=== PATIENT | male | born 1940 | race Caucasian/White ===

== ENCOUNTER 2019-04-06 16:28 | Observation (INO) ==
--- NOTE | 2019-04-06 16:59 | Emergency Department Note ---
Disposition Clinical Impression: Weakness, Cough Fever Qualifiers: Fever type: unspecified Qualified Code(s): R50.9 - Fever, unspecified Disposition: Still a Patient Referrals: Jan Aleman MD [Primary Care Provider] - Forms: ED Satisfaction Letter Time of Disposition: 19:19 General Adult HPI - General Chief complaint: ED Shortness of Breath/Dyspnea Stated complaint: congestion Time Seen by Provider: 04/06/19 16:30 Source: EMS Mode of arrival: EMS Limitations: altered mental status Nursing Notes Reviewed: Yes Vital Signs Reviewed: Yes - History of Present Illness HPI Narrative: 78M with PMHx of DM and Parkinson's dx presents to emergency department via EMS with a chief complaint of weakness. Pts gf called EMS last night because the patient slid out of his chair and was unable to get up. Pt refused transport at that time to be evaluated by a physician. Pt was too weak to stand today so EMS was called again today. The patient urinated on himself which is unusual for him. He currently has no complaints at this time. Pain Scale: 0 - Related Data Home Medications Medication Instructions Recorded Confirmed Amaryl 04/16/15 04/16/15 Amitriptyline 04/16/15 04/16/15 Aspirin 04/16/15 04/16/15 Atorvastatin 04/16/15 04/16/15 Glimepiride 04/16/15 04/16/15 Isosorbide Mononitrate 04/16/15 04/16/15 Lisinopril 04/16/15 04/16/15 Loratadine 04/16/15 04/16/15 Plavix 04/16/15 04/16/15 Proscar 04/16/15 04/16/15 Ranitidine 04/16/15 04/16/15 Xarelto 04/16/15 04/16/15 Zoloft 04/16/15 04/16/15 Previous Rx's Medication Instructions Recorded Acetaminophen [Tylenol] 500 mg PO Q6HR PRN #20 tablet 04/16/15 HydrOXYzine Pamoate [Vistaril] 50 mg PO HS PRN #7 capsule 11/30/17 Ondansetron ODT [Zofran ODT] 4 mg SL Q6HR PRN #12 tab.rapdis 11/30/17 Allergies Allergy/AdvReac Type Severity Reaction Status Date / Time oxycodone [From Percocet] Allergy Fatigued Verified 04/16/15 14:00 acetaminophen [From Vicodin] AdvReac Abdominal Verified 04/16/15 14:00 Pain hydrocodone [From Vicodin] AdvReac Abdominal Verified 04/16/15 14:00 Pain Oxycjph-Gas-Ipi Reductase AdvReac Muscle Pain Verified 10/10/15 12:39 Inhibitor [Statins] All systems ED: reviewed and negative except as stated. Review of Systems: As Per HPI Constitutional: Reports: weakness. Denies: fever, chills Cardiovascular: Denies: chest pain, palpitations, dyspnea on exertion Respiratory: Denies: cough, dyspnea, wheezes Gastrointestinal: Denies: abdominal pain, nausea, vomiting Genitourinary: Denies: dysuria Musculoskeletal: Denies: back pain Neurological: Denies: headache Endocrine: Reports: fatigue Past Medical History - Past Medical History Attestation: Yes The following information was validated with the patient. Source: patient Medical history: Reports: atrial fibrillation, DVT, diabetes Psychiatric history: Reports: no psych history - Social History Smoking Status: Never smoker Smokeless Tobacco Status: No Alcohol use: Reports: none Drug use: Reports: none Physical Exam - General Limitations: no limitations General appearance: alert, in no apparent distress - Head Head exam: atraumatic, normocephalic - Eye Eye exam: Present: normal appearance, PERRL, EOMI - Chest Chest inspection: Present: normal inspection. Absent: tenderness, rash - Respiratory Respiratory exam: Present: normal lung sounds bilaterally. Absent: wheezes - Cardiovascular Cardiovascular exam: Present: regular rate, normal rhythm - Abdominal Exam Abdominal exam: Present: soft, Non-Tender. Absent: distention, guarding, rebound, rigidity - Extremities Exam Extremities exam: Present: normal inspection. Absent: tenderness, pedal edema (1+ pedal edema bilaterally) - Neurological Exam Neurological exam: Present: alert. Absent: oriented X3 - Psychiatric Psychiatric exam: Present: normal affect, normal mood - Skin Skin exam: Present: warm, dry, intact Course Vital Signs Temperature 102.5 F H 04/06/19 16:31 Pulse Rate 86 04/06/19 16:31 Respiratory Rate 12 04/06/19 16:31 Blood Pressure 168/88 04/06/19 16:31 O2 Sat by Pulse Oximetry 95 04/06/19 16:31 Temperature 102.5 F H 04/06/19 16:31 Pulse Rate 86 04/06/19 16:31 Respiratory Rate 12 04/06/19 16:31 Blood Pressure 168/88 04/06/19 16:31 O2 Sat by Pulse Oximetry 95 04/06/19 16:31 Medical Decision Making - [facility] Narrative Medical decision making narrative: Pt presents with acute weakness and is febrile. We will pursue a septic workup and plan on admission for the patient. 191 - pts labs are unremarkable with a normal lactic, troponin, and WBC. He does not meet sepsis criteria but does have a cough. Awaiting CXR and urinalysis and we will treat his cough and usama with Duonebs. Pt will be signed out to the night team of Dr. Miller and Dr. Norwood for follow up on urine and CXR and admission for weakness. - Medical Records Medical records reviewed: Yes I reviewed the patient's medical records. - Lab Data Lab results reviewed: Yes I reviewed the patient's lab results. Result diagrams: 04/06/19 17:49 04/06/19 17:49 Lab Results 04/06/19 04/06/19 04/06/19 Range/Units 17:49 17:49 17:49 WBC 9.4 (4.3-11.1) K/mcL RBC 4.38 (4.19-5.50) M/mcL Hgb 13.3 (12.9-16.9) g/dL Hct 41.2 (37.5-50.1) % MCV 94.1 (83.0-100.0) fL MCH 30.4 (28.0-33.3) pg MCHC 32.3 (31.6-35.5) g/dL RDW 13.6 (11.5-14.5) % Plt Count 143 (140-400) K/mcL MPV 10.8 (9.4-12.4) fL Immature Gran % 0.4 (0-4) % Seg Neutrophils % 88.2 % Lymphocytes % 4.6 % Monocytes % 6.6 % Eosinophils % 0.0 % Basophils % 0.2 % Neutrophils # 8.3 (1.6-8.9) K/mcL Lymphocytes # 0.4 L (0.6-4.6) K/mcL Monocytes # 0.6 (0.0-1.3) K/mcL Eosinophils # 0.0 (0.0-0.6) K/mcL Basophils # 0.0 (0.0-0.2) K/mcL PT 15.9 H (9.4-12.1) Seconds INR 1.4 APTT 40.3 H (26.0-36.0) Seconds Sodium 137 (136-145) mEq/L Potassium 4.6 (3.5-5.1) mEq/L Chloride 101 (98-107) mEq/L Carbon Dioxide 25 (23-29) mEq/L BUN 22 (8-23) mg/dL Creatinine 1.13 (0.70-1.30) mg/dL Est GFR ( Amer) > 60 (> 60) Est GFR (Non-Af Amer) > 60 (> 60) BUN/Creatinine Ratio 19 (6-26) Glucose 268 H (70-105) mg/dL Calculated Osmolality 297 (280-300) Lactic Acid (0.5-2.2) mmol/L Calcium 9.4 (8.6-10.3) mg/dL Phosphorus 2.1 L (2.7-4.5) mg/dL Magnesium 1.8 (1.6-2.6) mg/dL Total Bilirubin 0.6 (0.3-1.0) mg/dL Direct Bilirubin 0.1 (0.0-0.2) mg/dL Indirect Bilirubin 0.5 (0.0-1.2) mg/dL AST 15 (13-39) Units/L ALT 18 (7-52) Units/L Alkaline Phosphatase 77 (34-104) Units/L Troponin I < 0.03 (< 0.04) ng/mL Serum Total Protein 7.2 (6.4-8.9) g/dL Albumin 4.4 (3.5-5.7) g/dL Globulin 2.8 (2.4-3.5) g/dL Albumin/Globulin Ratio 1.6 (1.1-2.2) 04/06/19 Range/Units 17:49 WBC (4.3-11.1) K/mcL RBC (4.19-5.50) M/mcL Hgb (12.9-16.9) g/dL Hct (37.5-50.1) % MCV (83.0-100.0) fL MCH (28.0-33.3) pg MCHC (31.6-35.5) g/dL RDW (11.5-14.5) % Plt Count (140-400) K/mcL MPV (9.4-12.4) fL Immature Gran % (0-4) % Seg Neutrophils % % Lymphocytes % % Monocytes % % Eosinophils % % Basophils % % Neutrophils # (1.6-8.9) K/mcL Lymphocytes # (0.6-4.6) K/mcL Monocytes # (0.0-1.3) K/mcL Eosinophils # (0.0-0.6) K/mcL Basophils # (0.0-0.2) K/mcL PT (9.4-12.1) Seconds INR APTT (26.0-36.0) Seconds Sodium (136-145) mEq/L Potassium (3.5-5.1) mEq/L Chloride (98-107) mEq/L Carbon Dioxide (23-29) mEq/L BUN (8-23) mg/dL Creatinine (0.70-1.30) mg/dL Est GFR ( Amer) (> 60) Est GFR (Non-Af Amer) (> 60) BUN/Creatinine Ratio (6-26) Glucose (70-105) mg/dL Calculated Osmolality (280-300) Lactic Acid 1.6 (0.5-2.2) mmol/L Calcium (8.6-10.3) mg/dL Phosphorus (2.7-4.5) mg/dL Magnesium (1.6-2.6) mg/dL Total Bilirubin (0.3-1.0) mg/dL Direct Bilirubin (0.0-0.2) mg/dL Indirect Bilirubin (0.0-1.2) mg/dL AST (13-39) Units/L ALT (7-52) Units/L Alkaline Phosphatase (34-104) Units/L Troponin I (< 0.04) ng/mL Serum Total Protein (6.4-8.9) g/dL Albumin (3.5-5.7) g/dL Globulin (2.4-3.5) g/dL Albumin/Globulin Ratio (1.1-2.2) - EKG Data EKG #1 EKG attestation: Yes I reviewed and interpreted this EKG. EKG results narrative: EKG obtained at Heart rate 89 bpm, QRS duration 100, QT 43, QTC 491 History of atrial flutter with 3-1 conduction. No signs of acute ST segment elevations or depressions. No other T-wave abnormalities. No significant changes when compared to previous EKG dated 11/18/2014.
[2019-04-06 18:11] LABS: Basophils % 0.2 %; Hematocrit 41.2 % (37.5-50.1); Hemoglobin 13.3 g/dL (12.9-16.9); Immature Granulocytes % 0.4 % (0-4); Lymphocytes # 0.4 K/mcL (0.6-4.6); Lymphocytes % 4.6 %; Mean Corpuscular HGB Conc 32.3 g/dL (31.6-35.5); Mean Corpuscular Hemoglobin 30.4 pg (28.0-33.3); Mean Corpuscular Volume 94.1 fL (83.0-100.0); Mean Platelet Volume 10.8 fL (9.4-12.4); Monocytes # 0.6 K/mcL (0.0-1.3); Monocytes % 6.6 %; Neutrophils # 8.3 K/mcL (1.6-8.9); Platelet Count 143 K/mcL (140-400); Red Blood Count 4.38 M/mcL (4.19-5.50); Red Cell Distribution Width 13.6 % (11.5-14.5); Segmented Neutrophils % 88.2 %; White Blood Count 9.4 K/mcL (4.3-11.1)
[2019-04-06 18:18] LABS: INR 1.4; Prothrombin Time 15.9 Seconds (9.4-12.1)
[2019-04-06 18:21] LABS: Activated Partial Thrombo Time 40.3 Seconds (26.0-36.0)
[2019-04-06 18:28] LABS: Alanine Aminotransferase 18 Units/L (7-52); Albumin 4.4 g/dL (3.5-5.7); Albumin/Globulin Ratio 1.6 (1.1-2.2); Alkaline Phosphatase 77 Units/L (34-104); Aspartate Amino Transferase 15 Units/L (13-39); BUN/Creatinine Ratio 19 (6-26); Bilirubin,Direct 0.1 mg/dL (0.0-0.2); Bilirubin,Indirect 0.5 mg/dL (0.0-1.2); Bilirubin,Total 0.6 mg/dL (0.3-1.0); Blood Urea Nitrogen 22 mg/dL (8-23); Calcium 9.4 mg/dL (8.6-10.3); Carbon Dioxide 25 mEq/L (23-29); Chloride 101 mEq/L (98-107); Globulin 2.8 g/dL (2.4-3.5); Glucose 268 mg/dL (70-105); Magnesium 1.8 mg/dL (1.6-2.6); Osmolality,Calculated 297 (280-300); Phosphorous 2.1 mg/dL (2.7-4.5); Potassium 4.6 mEq/L (3.5-5.1); Sodium 137 mEq/L (136-145); Total Protein 7.2 g/dL (6.4-8.9); Troponin I < 0.03 ng/mL (< 0.04); eGFR For African Americans > 60 (> 60); eGFR For Non-African Americans > 60 (> 60)
[2019-04-06] MEDS ORDERED: Ipratropium/Albuterol Neb 3 ML IH ONE (19:09)
[2019-04-06 19:20] LABS: Bilirubin,Urine Negative (Negative); Blood,Urine Negative (Negative); Clarity,Urine Clear (Clear); Color,Urine Yellow (Yellow); Glucose,Urine (UA) 500 mg/dL (Normal); Ketones,Urine Trace mg/dL (Negative); Leukocyte Esterase,Urine Negative (Negative); Nitrite,Urine Negative (Negative); Protein,Urine Trace mg/dL (Neg-Trace); Specific Gravity,Urine 1.025 (1.010-1.025); Urobilinogen,Urine Normal (Normal)
[2019-04-06] MEDS ORDERED: methylPREDNISolone 125 MG/2 ML VIAL IVP ONE (20:10)
[2019-04-06] MEDS ORDERED: 0.9 % Sodium Chloride 1,000 ML IVC ONE (20:10)
[2019-04-06] MEDS ORDERED: *HR* Metoprolol 5 MG/5 ML VIAL IVP ONE (20:11)
--- NOTE | 2019-04-06 20:48 | Emergency Department Note ---
Disposition Clinical Impression: Weakness, Cough, Tachycardia, Atrial fibrillation and flutter Fever Qualifiers: Fever type: unspecified Qualified Code(s): R50.9 - Fever, unspecified Disposition: Admitted As Inpatient Referrals: Jan Aleman MD [Primary Care Provider] - Forms: ED Satisfaction Letter Time of Disposition: 20:50 General Adult HPI - General Chief complaint: ED Shortness of Breath/Dyspnea Stated complaint: congestion Time Seen by Provider: 04/06/19 16:30 Source: EMS Mode of arrival: EMS Limitations: no limitations Nursing Notes Reviewed: Yes Vital Signs Reviewed: Yes - History of Present Illness Pain Scale: 0 - Related Data Home Medications Medication Instructions Recorded Confirmed Amaryl 04/16/15 04/16/15 Amitriptyline 04/16/15 04/16/15 Aspirin 04/16/15 04/16/15 Atorvastatin 04/16/15 04/16/15 Glimepiride 04/16/15 04/16/15 Isosorbide Mononitrate 04/16/15 04/16/15 Lisinopril 04/16/15 04/16/15 Loratadine 04/16/15 04/16/15 Plavix 04/16/15 04/16/15 Proscar 04/16/15 04/16/15 Ranitidine 04/16/15 04/16/15 Xarelto 04/16/15 04/16/15 Zoloft 04/16/15 04/16/15 Previous Rx's Medication Instructions Recorded Acetaminophen [Tylenol] 500 mg PO Q6HR PRN #20 tablet 04/16/15 HydrOXYzine Pamoate [Vistaril] 50 mg PO HS PRN #7 capsule 11/30/17 Ondansetron ODT [Zofran ODT] 4 mg SL Q6HR PRN #12 tab.rapdis 11/30/17 Allergies Allergy/AdvReac Type Severity Reaction Status Date / Time oxycodone [From Percocet] Allergy Fatigued Verified 04/06/19 19:47 acetaminophen [From Vicodin] AdvReac Abdominal Verified 04/06/19 19:47 Pain hydrocodone [From Vicodin] AdvReac Abdominal Verified 04/06/19 19:47 Pain Iocmeqe-Bbc-Rxa Reductase AdvReac Muscle Pain Verified 04/06/19 19:47 Inhibitor [Statins] Constitutional: Reports: weakness. Denies: fever, chills Cardiovascular: Denies: chest pain, palpitations, dyspnea on exertion Respiratory: Denies: cough, dyspnea, wheezes Gastrointestinal: Denies: abdominal pain, nausea, vomiting Genitourinary: Denies: dysuria Musculoskeletal: Denies: back pain Neurological: Denies: headache Endocrine: Reports: fatigue Past Medical History - Past Medical History Medical history: Reports: atrial fibrillation, DVT, diabetes Psychiatric history: Reports: no psych history - Social History Smoking Status: Never smoker Smokeless Tobacco Status: No Alcohol use: Reports: none Drug use: Reports: none Physical Exam - General Limitations: no limitations General appearance: alert, in no apparent distress Course Vital Signs Temperature 102.5 F H 04/06/19 16:31 Pulse Rate 86 04/06/19 16:31 Respiratory Rate 12 04/06/19 16:31 Blood Pressure 168/88 04/06/19 16:31 O2 Sat by Pulse Oximetry 95 04/06/19 16:31 Temperature 102.5 F H 04/06/19 16:31 Pulse Rate 131 04/06/19 19:30 Respiratory Rate 20 04/06/19 19:30 Blood Pressure 155/78 04/06/19 19:30 O2 Sat by Pulse Oximetry 93 04/06/19 19:50 Oxygen Delivery Oxygen Delivery Room Air Medical Decision Making - [facility] Narrative Medical decision making narrative: I received this patient in signout, as following up on chest x-ray, and the patient would need to be admitted for further management of bronchitis, and generalized weakness. Chest x-ray showed no evidence of acute abnormality, repeat examination of the patient, his heart rate increased from 85 up to 133, appeared to be A. fib/flutter on the monitor, his heart rate then dropped to 106, then back into the 80s then increased again in the 130s, repeat EKG was obtained which demonstrated likely a flutter with a heart rate of 133, cannot rule out isolated sinus tachycardia. He was then given IV fluids, 1 dose of IV metoprolol. I did add a flu screen to his workup for fever and cough which was negative. Patient does have a history of A. fib, is on a factor X inhibitor, do not edmond spect blood clot he does not endorse chest pain, has a cough, with the fever, with diffuse wheezing and coarse breath sounds throughout his lungs consistent with acute bronchitis. I contacted the hospitalist service will admit this patient for further management. I reviewed all his laboratory studies which were all within acceptable limits with no laboratory findings suggestive of sepsis, no evidence of acute myocardial infarction. The hospitalist service requested a CT of the chest without contrast to further define any potential infectious process as well as a viral respiratory panel which I added for them, and they will admit this patient for further management. Secondary to persistent wheezes, I also give the patient IV Solu-Medrol. - Lab Data Result diagrams: 04/06/19 17:49 04/06/19 17:49 Lab Results 04/06/19 04/06/19 04/06/19 Range/Units 17:49 17:49 17:49 WBC 9.4 (4.3-11.1) K/mcL RBC 4.38 (4.19-5.50) M/mcL Hgb 13.3 (12.9-16.9) g/dL Hct 41.2 (37.5-50.1) % MCV 94.1 (83.0-100.0) fL MCH 30.4 (28.0-33.3) pg MCHC 32.3 (31.6-35.5) g/dL RDW 13.6 (11.5-14.5) % Plt Count 143 (140-400) K/mcL MPV 10.8 (9.4-12.4) fL Immature Gran % 0.4 (0-4) % Seg Neutrophils % 88.2 % Lymphocytes % 4.6 % Monocytes % 6.6 % Eosinophils % 0.0 % Basophils % 0.2 % Neutrophils # 8.3 (1.6-8.9) K/mcL Lymphocytes # 0.4 L (0.6-4.6) K/mcL Monocytes # 0.6 (0.0-1.3) K/mcL Eosinophils # 0.0 (0.0-0.6) K/mcL Basophils # 0.0 (0.0-0.2) K/mcL PT 15.9 H (9.4-12.1) Seconds INR 1.4 APTT 40.3 H (26.0-36.0) Seconds Sodium 137 (136-145) mEq/L Potassium 4.6 (3.5-5.1) mEq/L Chloride 101 (98-107) mEq/L Carbon Dioxide 25 (23-29) mEq/L BUN 22 (8-23) mg/dL Creatinine 1.13 (0.70-1.30) mg/dL Est GFR ( Amer) > 60 (> 60) Est GFR (Non-Af Amer) > 60 (> 60) BUN/Creatinine Ratio 19 (6-26) Glucose 268 H (70-105) mg/dL Calculated Osmolality 297 (280-300) Lactic Acid (0.5-2.2) mmol/L Calcium 9.4 (8.6-10.3) mg/dL Phosphorus 2.1 L (2.7-4.5) mg/dL Magnesium 1.8 (1.6-2.6) mg/dL Total Bilirubin 0.6 (0.3-1.0) mg/dL Direct Bilirubin 0.1 (0.0-0.2) mg/dL Indirect Bilirubin 0.5 (0.0-1.2) mg/dL AST 15 (13-39) Units/L ALT 18 (7-52) Units/L Alkaline Phosphatase 77 (34-104) Units/L Troponin I < 0.03 (< 0.04) ng/mL Serum Total Protein 7.2 (6.4-8.9) g/dL Albumin 4.4 (3.5-5.7) g/dL Globulin 2.8 (2.4-3.5) g/dL Albumin/Globulin Ratio 1.6 (1.1-2.2) Urine Color (Yellow) Urine Clarity (Clear) Urine pH (5.0-8.0) pH Units Ur Specific [place] (1.010-1.025) Urine Protein (Neg-Trace) mg/dL Urine Glucose (UA) (Normal) mg/dL Urine Ketones (Negative) mg/dL Urine Blood (Negative) Urine Nitrite (Negative) Urine Bilirubin (Negative) Urine Urobilinogen (Normal) mg/dL Ur Leukocyte Esterase (Negative) Ur Culture Indicated? (NO) 04/06/19 04/06/19 Range/Units 17:49 19:09 WBC (4.3-11.1) K/mcL RBC (4.19-5.50) M/mcL Hgb (12.9-16.9) g/dL Hct (37.5-50.1) % MCV (83.0-100.0) fL MCH (28.0-33.3) pg MCHC (31.6-35.5) g/dL RDW (11.5-14.5) % Plt Count (140-400) K/mcL MPV (9.4-12.4) fL Immature Gran % (0-4) % Seg Neutrophils % % Lymphocytes % % Monocytes % % Eosinophils % % Basophils % % Neutrophils # (1.6-8.9) K/mcL Lymphocytes # (0.6-4.6) K/mcL Monocytes # (0.0-1.3) K/mcL Eosinophils # (0.0-0.6) K/mcL Basophils # (0.0-0.2) K/mcL PT (9.4-12.1) Seconds INR APTT (26.0-36.0) Seconds Sodium (136-145) mEq/L Potassium (3.5-5.1) mEq/L Chloride (98-107) mEq/L Carbon Dioxide (23-29) mEq/L BUN (8-23) mg/dL Creatinine (0.70-1.30) mg/dL Est GFR ( Amer) (> 60) Est GFR (Non-Af Amer) (> 60) BUN/Creatinine Ratio (6-26) Glucose (70-105) mg/dL Calculated Osmolality (280-300) Lactic Acid 1.6 (0.5-2.2) mmol/L Calcium (8.6-10.3) mg/dL Phosphorus (2.7-4.5) mg/dL Magnesium (1.6-2.6) mg/dL Total Bilirubin (0.3-1.0) mg/dL Direct Bilirubin (0.0-0.2) mg/dL Indirect Bilirubin (0.0-1.2) mg/dL AST (13-39) Units/L ALT (7-52) Units/L Alkaline Phosphatase (34-104) Units/L Troponin I (< 0.04) ng/mL Serum Total Protein (6.4-8.9) g/dL Albumin (3.5-5.7) g/dL Globulin (2.4-3.5) g/dL Albumin/Globulin Ratio (1.1-2.2) Urine Color Yellow (Yellow) Urine Clarity Clear (Clear) Urine pH 6.0 (5.0-8.0) pH Units Ur Specific [place] 1.025 (1.010-1.025) Urine Protein Trace (Neg-Trace) mg/dL Urine Glucose (UA) 500 H (Normal) mg/dL Urine Ketones Trace H (Negative) mg/dL Urine Blood Negative (Negative) Urine Nitrite Negative (Negative) Urine Bilirubin Negative (Negative) Urine Urobilinogen Normal (Normal) mg/dL Ur Leukocyte Esterase Negative (Negative) Ur Culture Indicated? NO (NO)
[2019-04-06] MEDS ORDERED: Acetaminophen 325 MG TABLET PO PRN (21:23)
[2019-04-06] MEDS ORDERED: Ipratropium/Albuterol Neb 3 ML IH PRN (21:23)
[2019-04-06] MEDS ORDERED: GuaiFENesin Liq 200 MG/10 ML UDC PO PRN (21:24)
[2019-04-06] MEDS ORDERED: *HR* Dextrose 50 % in Water (Syg) 50 ML SYRINGE IVP PRN (21:37)
[2019-04-06] MEDS ORDERED: Dextrose Gel 15 GM/37.5 ML TUBE PO PRN ×2 (21:37)
[2019-04-06 22:07] LABS: Adenovirus Not Detected (Not Detect); Bordetella Pertussis Not Detected (Not Detect); Chlamydophila pneumoniae Not Detected (Not Detect); Coronavirus 229E Not Detected (Not Detect); Coronavirus HKU1 Not Detected (Not Detect); Coronavirus NL63 Not Detected (Not Detect); Coronavirus OC43 Not Detected (Not Detect); Human Metapneumovirus Not Detected (Not Detect); Human Rhinovirus/Enterovirus DETECTED (Not Detect); Influenza A Subtype 2009 H1 Not Detected (Not Detect); Influenza A Untypeable Not Detected (Not Detect); Influenza B Not Detected (Not Detect); Mycoplasma pneumoniae Not Detected (Not Detect); Parainfluenza Virus 1 Not Detected (Not Detect); Parainfluenza Virus 2 Not Detected (Not Detect); Parainfluenza Virus 3 Not Detected (Not Detect); Parainfluenza Virus 4 Not Detected (Not Detect); Respiratory Syncytial Virus Not Detected (Not Detect)
[2019-04-06] MEDS ORDERED: Indomethacin 25 MG CAPSULE PO ONE (22:33)
[2019-04-06] MEDS: Ringers Solution, Lactated 1,000 ML IVC SCH (23:05)
--- NOTE | 2019-04-06 23:09 | Internal Med History&Physical ---
Date of Encounter: 04/06/19 Time of Encounter: 23:08 Internal Medicine - H&P: HPI Chief complaint: weakness Admitted From: Home Plans for Post Hospital Care: Home History of present illness: Satinder Blanton is a 78 year old man with diabetes, coronary artery disease and atrial fibrillation who was brought to the ER with complaints of generalized. 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 He refused to be transported to the hospital then. He remained too weak to stand today and urinated on himself so EMS was again called. He offered no complaints to the ER staff but was noted febrile to 102.5F and later went into Afib with RVR which responded to 5mg of metoprolol IVP. He was also given a liter of fluids. At the time of my assessment is only complaint was a bothersome dry cough that has been present over a number of days accompanied by sore throat. He denies chest pain, dyspnea, nausea, vomiting, abdominal pain and diarrhea. He does admit to feeling feverish earlier. He is referred for admission. Vitals: Reviewed General: Elderly man who appears asthenic lying in bed in NAD smacking his tongue. Skin: Warm, pale and dry. HEENT: Dry mucous membranes. (+) conjunctivae pallor. Neck: No lymphadenopathy. No JVD. No carotid bruits. No palpable thyroid. Chest: Diminished thoracic expansion. Rales in both lung bases. Heart: Normal S1 & S2; rhythmic. No rubs or murmurs. Abdomen: Non-distended, soft and non-tender to palpation. No peritoneal reaction. Extremities: No clubbing, cyanosis. No calf tenderness. Normal distal pulses. Neurological: Awake, alert and oriented to person, place. No focal deficits. Psych: Affect flat. Assessment/Plan 1. Fever: Will get a CT scan to evaluate the crackles auscultated on the patient to ensure there is no pneumonic consolidation. There is no evidence of UTI or skin/soft tissue infection. The complaints of dry cough and sore throat in the setting of the fever prompts me to think he has a viral syndrome so a respiratory virus panel will be ordered. In the interim, blood cultures will be ordered empirically but there is currently no indication for antimicrobials until proven otherwise. Keep on IVF for hydration as he appears dry. 2. Generalized weakness: Suspect secondary to the febrile/viral syndrome. Will get physical therapy for mobilization. May need assistance at home. He has underlying Parkinson's documented but I do not see what medications he is on for this. 3. Hypophosphatemia: Supplementation ordered. 4. Diabetes: Diet ordered with insulin sliding scale. 5. CAD: Awaiting home medication reconciliation prior to initiating medications. 6. Atrial fibrillation: Currently rate controlled. Monitor on telemetry. Awaiting home medication reconciliation prior to initiating medications. Past Med Surg Social Fam HX - Past Medical History Medical history: atrial fibrillation, DVT, diabetes Additional medical history: parkinson's dosease. diabetes Psychiatric history: no psych history - Past Surgical History Additional surgical history: Stents x 3 - Social History Smoking Status: Never smoker Smokeless Tobacco Status: No Alcohol use: none Drug use: none Internal Medicine - H&P: Meds Acetaminophen [Tylenol] 500 mg PO Q6HR PRN #20 tablet 04/16/15 [Rx] Amaryl 04/16/15 [History] Amitriptyline 04/16/15 [History] Aspirin 04/16/15 [History] Atorvastatin 04/16/15 [History] Glimepiride 04/16/15 [History] Isosorbide Mononitrate 04/16/15 [History] Lisinopril 04/16/15 [History] Loratadine 04/16/15 [History] Plavix 04/16/15 [History] Proscar 04/16/15 [History] Ranitidine 04/16/15 [History] Xarelto 04/16/15 [History] Zoloft 04/16/15 [History] HydrOXYzine Pamoate [Vistaril] 50 mg PO HS PRN #7 capsule 11/30/17 [Rx] Ondansetron ODT [Zofran ODT] 4 mg SL Q6HR PRN #12 tab.rapdis 11/30/17 [Rx] Allergy/AdvReac Type Severity Reaction Status Date / Time oxycodone [From Percocet] Allergy Fatigued Verified 04/06/19 19:47 acetaminophen [From Vicodin] AdvReac Abdominal Verified 04/06/19 19:47 Pain hydrocodone [From Vicodin] AdvReac Abdominal Verified 04/06/19 19:47 Pain Feumqmf-Gvr-Wdd Reductase AdvReac Muscle Pain Verified 04/06/19 19:47 Inhibitor [Statins] All Systems PM: A 10-system review of systems was performed and is negative for pertinent findings except as documented above in the HPI. Family history reviewed and found non-contributory. - Constitutional Vitals: Temp Pulse Resp BP Pulse Ox 98.3 F 83 16 137/77 94 04/06/19 22:42 04/06/19 22:42 04/06/19 22:42 04/06/19 22:42 04/06/19 22:42 Exam: . Internal Med - H&P Results - Labs CBC & Chem 7: 04/06/19 17:49 04/06/19 17:49 Labs: Short CBC 04/06/19 Range/Units 17:49 WBC 9.4 (4.3-11.1) K/mcL Hgb 13.3 (12.9-16.9) g/dL Hct 41.2 (37.5-50.1) % Plt Count 143 (140-400) K/mcL Neutrophils # 8.3 (1.6-8.9) K/mcL BMP 04/06/19 17:49 Sodium 137 Potassium 4.6 Chloride 101 Carbon Dioxide 25 BUN 22 Creatinine 1.13 Glucose 268 H Calcium 9.4 Cardiac Enzymes 04/06/19 Range/Units 17:49 Troponin I < 0.03 (< 0.04) ng/mL Liver Function 04/06/19 Range/Units 17:49 Total Bilirubin 0.6 (0.3-1.0) mg/dL Direct Bilirubin 0.1 (0.0-0.2) mg/dL AST 15 (13-39) Units/L ALT 18 (7-52) Units/L Alkaline Phosphatase 77 (34-104) Units/L Albumin 4.4 (3.5-5.7) g/dL Urine 04/06/19 Range/Units 19:09 Urine Color Yellow (Yellow) Urine Clarity Clear (Clear) Urine pH 6.0 (5.0-8.0) pH Units Ur Specific [place] 1.025 (1.010-1.025) Urine Protein Trace (Neg-Trace) mg/dL Urine Glucose (UA) 500 H (Normal) mg/dL - Impressions ITS Impressions Chest X-Ray 04/06/19 18:44 IMPRESSION: Stable portable study. D/ / Leyda Lay Cha, MD / Leyda Lay Cha, MD Interpreting Provider: Leyda Lay Cha, MD Chest CT 04/06/19 20:41 IMPRESSION: Mild diffuse central bronchial wall thickening, nonspecific finding which can be seen with infectious or inflammatory etiologies to include smoking. Minimal mostly dependent bibasilar airspace disease, likely atelectasis. Pneumonia is considered unlikely. D/ / Leyda Lay Cha, MD / Leyda Lay Cha, MD Interpreting Provider: Leyda Lay Cha, MD - Time Spent With Patient Total time spent is greater than 50% in coordination of care (as documented) at patient's floor/unit and/or counseling patient:
[2019-04-07] MEDS: Ringers Solution, Lactated 1,000 ML IVC SCH (07:51)
[2019-04-07] MEDS: Insulin LISPRO 300 UNITS/3 ML VIAL SQ SCH ×3 (07:52→17:35)
--- NOTE | 2019-04-07 09:38 | Internal Med Progress Note ---
Hospitalist Progress Note - Encounter Date of Encounter: 04/07/19 Time of Encounter: 09:35 - Subjective Interval History: Satinder Blanton is a 78 year old man with diabetes, coronary artery disease and atrial fibrillation who was brought to the ER with complaints of generalized weakness. It is reported that his female order entry administrator called EMS last night because he slid out of his chair and was unable to get up. He refused to be transported to the hospital then. He remained too weak to stand today and urinated on himself so EMS was again called. He offered no complaints to the ER staff but was noted febrile to 102.5F and later went into Afib with RVR which responded to 5mg of metoprolol IVP. He was also given a liter of fluids. At the time of my assessment is only complaint was a bothersome dry cough that has been present over a number of days accompanied by sore throat. He denies chest pain, dyspnea, nausea, vomiting, abdominal pain and diarrhea. He does admit to feeling feverish earlier. He is admitted. Pt seen and examined in the room. He stated that he is able to stand up and walk now. reported absence of fever, chills, or night sweats. reported dry cough without mucus, no chest pain or shortness of breath. - Exam Vitals: Temp Pulse Resp BP Pulse Ox 97.6 F 63 16 93/62 99 04/07/19 06:25 04/07/19 06:25 04/07/19 06:25 04/07/19 06:25 04/07/19 06:25 Exam: PHYSICAL EXAMINATION: GENERAL APPEARANCE: The patient is alert, oriented and in no acute distress. HEENT: Head is normocephalic. The sinuses are nontender. Pupils are equal and reactive. The nares are patent. Oropharynx clear without lesions. NECK: Supple without lymphadenopathy. HEART: Regular rate and rhythm. LUNGS: No crackles or wheezes are heard. ABDOMEN: Soft, nontender, nondistended with good bowel sounds heard. Inguinal area is normal. EXTREMITIES: Without cyanosis, clubbing or edema. NEUROLOGICAL: Gross nonfocal. SKIN: Warm and dry without any rash. - Assessment and Plan (1) Weakness Current Visit: Yes Status: Acute Assessment and Plan: Transient weakness when he was found having afib with rvr. He has returned to his baseline this morning. He has reported hx of Parkinson's disease but currently not receiving treatment for that. Pending PT/OT consult. (2) Cough Current Visit: Yes Status: Acute Assessment and Plan: Respiratory panel is positive for rhinovirus. Reported dry cough without sputum production, also he had 1 episode of fever, but his temperature has been normal since admission. CT of chest revealed mild diffuse central bronchial wall thickening, nonspecific finding which can be seen with infectious or inflammatory etiologies to include smoking. Minimal mostly dependent bibasilar airspace disease, likely atelectasis, pneumonia is considered unlikely. Continue supportive care. (3) Fever Current Visit: Yes Status: Acute Assessment and Plan: Patient had a 1 episode of at the ED, further workup has no evidence of infection. Fever resolved since admission. (4) Atrial fibrillation and flutter Current Visit: Yes Status: Acute Assessment and Plan: Patient has history of atrial fibrillation/flutter, takes xarelto at home. He was found to have A. fib with RVR by the EMS before admission, he received 1 dose of IV metoprolol as well as IV fluid. Currently rate was controlled. He does not take any greg blockers at home. We will continue Xarelto. (5) Hypertension Current Visit: No Status: Chronic Assessment and Plan: BP controlled, continue home medication once verified. (6) Diabetes mellitus Current Visit: No Status: Chronic Assessment and Plan: Hold home oral agents, started patient on insulin sliding scale. Recent A1c 9.3 in 01/2019, encourage pt to continue f/u with PCP and work on the meds adjustment to achieve a target gaol a1c<7.0. DVT Prophylaxis: Patient on Xarelto. - Time Spent with Patient Total time spent is greater than 50% in coordination of care (as documented) at patient's floor/unit and/or counseling patient: Greater than 35 minutes Plan of Care Discussed with: patient Internal Medicine: Result - Labs CBC & Chem 7: 04/06/19 17:49 04/06/19 17:49 Labs: Short CBC 04/06/19 Range/Units 17:49 WBC 9.4 (4.3-11.1) K/mcL Hgb 13.3 (12.9-16.9) g/dL Hct 41.2 (37.5-50.1) % Plt Count 143 (140-400) K/mcL Neutrophils # 8.3 (1.6-8.9) K/mcL BMP 04/06/19 17:49 Sodium 137 Potassium 4.6 Chloride 101 Carbon Dioxide 25 BUN 22 Creatinine 1.13 Glucose 268 H Calcium 9.4 Cardiac Enzymes 04/06/19 Range/Units 17:49 Troponin I < 0.03 (< 0.04) ng/mL Liver Function 04/06/19 Range/Units 17:49 Total Bilirubin 0.6 (0.3-1.0) mg/dL Direct Bilirubin 0.1 (0.0-0.2) mg/dL AST 15 (13-39) Units/L ALT 18 (7-52) Units/L Alkaline Phosphatase 77 (34-104) Units/L Albumin 4.4 (3.5-5.7) g/dL Urine 04/06/19 Range/Units 19:09 Urine Color Yellow (Yellow) Urine Clarity Clear (Clear) Urine pH 6.0 (5.0-8.0) pH Units Ur Specific [place] 1.025 (1.010-1.025) Urine Protein Trace (Neg-Trace) mg/dL Urine Glucose (UA) 500 H (Normal) mg/dL - ABG Interpretation ABG results: PT/INR, D-dimer PT 15.9 Seconds (9.4-12.1) H 04/06/19 17:49 - Impressions Impressions Chest X-Ray 04/06/19 18:44 IMPRESSION: Stable portable study. D/ / Leyda Lay Cha, MD / Leyda Lay Cha, MD Interpreting Provider: Leyda Lay Cha, MD Chest CT 04/06/19 20:41 IMPRESSION: Mild diffuse central bronchial wall thickening, nonspecific finding which can be seen with infectious or inflammatory etiologies to include smoking. Minimal mostly dependent bibasilar airspace disease, likely atelectasis. Pneumonia is considered unlikely. 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
--- NOTE | 2019-04-07 13:57 | Electrocardiograph Report ---
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
--- NOTE | 2019-04-07 14:04 | Electrocardiograph Report ---
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
[2019-04-07] MEDS ORDERED: *HR* Rivaroxaban 10 MG TABLET PO SCH (17:00)
[2019-04-07] MEDS ORDERED: *HR* HYDROcodone/Acet 10/325 mg TABLET PO PRN (17:12)
[2019-04-07] MEDS ORDERED: Insulin LISPRO 300 UNITS/3 ML VIAL SQ SCH (21:00)
[2019-04-07] MEDS ORDERED: Insulin DETEMIR 100 UNIT/ML X5UNITS SQ SCH (21:00)
[2019-04-07] MEDS: Carbidopa/Levodopa 25/100 TABLET PO SCH (21:15)
[2019-04-07] MEDS: Gabapentin 300 MG CAPSULE PO SCH (21:15)
[2019-04-08 07:33] VITALS: BP 153/87
[2019-04-08] MEDS: Carbidopa/Levodopa 25/100 TABLET PO SCH (08:20)
[2019-04-08] MEDS: Insulin LISPRO 300 UNITS/3 ML VIAL SQ SCH (08:21)
[2019-04-08] MEDS: Gabapentin 300 MG CAPSULE PO SCH (08:21)
[2019-04-08] MEDS ORDERED: Lisinopril 20 MG TABLET PO SCH (09:00)
[2019-04-08] MEDS ORDERED: Aspirin Enteric Coated 81 MG Tablet PO SCH (09:00)
[2019-04-08] MEDS ORDERED: Finasteride 5 MG TABLET PO SCH (09:00)
--- NOTE | 2019-04-08 09:24 | Discharge Summary ---
- NOTES TO OUTPATIENT PROVIDER Notes to Outpatient Provider: f/u with PCP within a week. Orders not resulted at time of discharge: Pending orders 04/06/19 17:49 Culture,Blood [] Stat Date of Encounter: 04/08/19 Time of Encounter: 09:22 - Discharge Diagnosis (1) Weakness Priority: Primary Status: Resolved (2) Cough Priority: Primary Status: Acute (3) Fever Priority: Primary Status: Resolved Qualifiers: Fever type: unspecified Qualified Code(s): R50.9 - Fever, unspecified (4) Atrial fibrillation and flutter Priority: Secondary Status: Chronic (5) Hypertension Priority: Secondary Status: Chronic Qualifiers: Hypertension type: essential hypertension Qualified Code(s): I10 - Essential (primary) hypertension (6) Diabetes mellitus Priority: Secondary Status: Chronic Qualifiers: Diabetes mellitus type: type 2 Diabetes mellitus residential insulin use: without residential use Diabetes mellitus complication status: with other specified complication Qualified Code(s): E11.69 - Type 2 diabetes mellitus with other specified complication Hospital course: Satinder Blanton is a 78 year old man with diabetes, coronary artery disease and atrial fibrillation who was brought to the ER with complaints of generalized. 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 He refused to be transported to the hospital then. He remained too weak to stand today and urinated on himself so EMS was again called. He offered no complaints to the ER staff but was noted febrile to 102.5F and later went into Afib with RVR which responded to 5mg of metoprolol IVP. He was also given a liter of fluids. At the time of my assessment is only complaint was a bothersome dry cough that has been present over a number of days accompanied by sore throat. He denies chest pain, dyspnea, nausea, vomiting, abdominal pain and diarrhea. He does admit to feeling feverish earlier. He is referred for admission. CT of the chest was performed which showed mild diffuse central bronchial wall thickening, nonspecific finding which can be seen with infectious or inflammatory etiologies to include a smoking. Respiratory panel was positive for rhinovirus. Patient received supportive care with IV fluid. His fever resolved. On the second hospital day, patient was able to ambulate. PT/OT was consulted, patient was independent with most of the activities, there is no indication for rehabilitation. Patient is discharged home today, he will follow-up with PCP within the week. Discharge discussed with: patient Time spent discussing smoking cessation with patient: more than 10 minutes - Time Spent with Patient Total time spent providing and/or coordinating discharge services: Time spent: Greater than 30 minutes - Discharge Medications Prescriptions: Continued Rivaroxaban [Xarelto] 15 mg PO DAILY Finasteride [Proscar] 5 mg PO DAILY Lisinopril [Zestril] 20 mg PO DAILY Atorvastatin Calcium [Lipitor] 20 mg PO HS Aspirin [Adult Aspirin Regimen] 81 mg PO DAILY Amitriptyline [Elavil] 25 mg PO HS Carbidopa/Levodopa [Carbidopa-Levodopa 25-100 Tab] 1 each PO TID Gabapentin [Neurontin] 900 mg PO TID HYDROcodone/Acet 10/325 mg [[place] 10-325 mg] 1 tab PO Q8H PRN PRN Reason: Pain Insulin Glargine,Hum.rec.anlog [Lantus Solostar] 7 unit SQ HS Insulin LISPRO [Humalog Kwikpen U-100] 5 unit SQ TIDWM PRN PRN Reason: Sliding Scale Metformin HCl 850 mg PO BID Home Medications: Amitriptyline [Elavil] 25 mg PO HS 04/16/15 [History] Aspirin [Adult Aspirin Regimen] 81 mg PO DAILY 04/16/15 [History] Atorvastatin Calcium [Lipitor] 20 mg PO HS 04/16/15 [History] Finasteride [Proscar] 5 mg PO DAILY 04/16/15 [History] Lisinopril [Zestril] 20 mg PO DAILY 04/16/15 [History] Rivaroxaban [Xarelto] 15 mg PO DAILY 04/16/15 [History] Carbidopa/Levodopa [Carbidopa-Levodopa 25-100 Tab] 1 each PO TID 04/07/19 [History] Gabapentin [Neurontin] 900 mg PO TID 04/07/19 [History] HYDROcodone/Acet 10/325 mg [[place] 10-325 mg] 1 tab PO Q8H PRN 04/07/19 [History] Insulin Glargine,Hum.rec.anlog [Lantus Solostar] 7 unit SQ HS 04/07/19 [History] Insulin LISPRO [Humalog Kwikpen U-100] 5 unit SQ TIDWM PRN 04/07/19 [History] Metformin HCl 850 mg PO BID 04/07/19 [History] Allergies/Adverse Reactions: Allergy/AdvReac Type Severity Reaction Status Date / Time oxycodone [From Percocet] Allergy Fatigued Verified 04/06/19 19:47 acetaminophen [From Vicodin] AdvReac Abdominal Verified 04/06/19 19:47 Pain Beta-Blockers AdvReac See Verified 04/07/19 14:48 (Beta-Adrenergic Bloc Comments hydrocodone [From Vicodin] AdvReac Abdominal Verified 04/06/19 19:47 Pain Ufxufpw-Mdv-Bus Reductase AdvReac Muscle Pain Verified 04/06/19 19:47 Inhibitor [Statins] Date of admission: 04/06/19 20:55 Primary care physician: Jan Aleman MD Consults: 04/06/19 23:03 Consult to Physical Therapy [CONS] Routine Comment: Evaluate, develop and implement POC Reason for Consult: Generalized weakness and inability to perform ADLs Does patient have active BEDREST order?: No Is patient medically & hemodynamically stable?: Yes Patient assessed for mobility or mobilized this visit?: Yes Anticipated date of discharge: 04/08/19 - Constitutional Vitals: Temp Pulse Resp BP Pulse Ox 97.7 F 92 16 153/87 94 04/08/19 07:27 04/08/19 07:27 04/08/19 07:27 04/08/19 07:27 04/08/19 07:27 General appearance: Present: A&O X 3 Exam: PHYSICAL EXAMINATION: GENERAL APPEARANCE: The patient is alert, oriented and in no acute distress. HEENT: Head is normocephalic. The sinuses are nontender. Pupils are equal and reactive. The nares are patent. Oropharynx clear without lesions. NECK: Supple without lymphadenopathy. HEART: Regular rate and rhythm. LUNGS: No crackles or wheezes are heard. ABDOMEN: Soft, nontender, nondistended with good bowel sounds heard. Inguinal area is normal. EXTREMITIES: Without cyanosis, clubbing or edema. NEUROLOGICAL: Gross nonfocal. SKIN: Warm and dry without any rash. - Patient Status Disposition: Home, Self-Care Condition: Fair Functional capacity at discharge: uses cane/walker Overall status at discharge: patient is progressing back to baseline - Discharge Instructions Follow Up With: Jan Aleman MD [Primary Care Provider] - (Appointment has been requested.) - Diet and Activity Activity: resume usual activities as tolerated Diet: diabetic diet, low fat, low cholesterol, low salt diet
[2019-04-08] MEDS ORDERED: *HR* Rivaroxaban 15 MG TABLET PO SCH (17:00)
--- NOTE | 2019-04-10 07:51 | Emergency Department Note ---
Disposition Clinical Impression: Weakness, Cough, Fever, Tachycardia, Atrial fibrillation and flutter Disposition: Still a Patient Condition: Fair Time of Disposition: 19:00 General Adult HPI - General Chief complaint: ED Shortness of Breath/Dyspnea Stated complaint: congestion Time Seen by Provider: 04/06/19 16:30 Source: EMS Mode of arrival: EMS Limitations: no limitations - History of Present Illness Pain Scale: 0 - Related Data Home Medications Medication Instructions Recorded Confirmed Amitriptyline [Elavil] 25 mg PO HS 04/16/15 04/07/19 Aspirin [Adult Aspirin Regimen] 81 mg PO DAILY 04/16/15 04/07/19 Atorvastatin Calcium [Lipitor] 20 mg PO HS 04/16/15 04/07/19 Finasteride [Proscar] 5 mg PO DAILY 04/16/15 04/07/19 Lisinopril [Zestril] 20 mg PO DAILY 04/16/15 04/07/19 Rivaroxaban [Xarelto] 15 mg PO DAILY 04/16/15 04/07/19 Carbidopa/Levodopa 1 each PO TID 04/07/19 04/07/19 [Carbidopa-Levodopa 25-100 Tab] Gabapentin [Neurontin] 900 mg PO TID 04/07/19 04/07/19 HYDROcodone/Acet 10/325 mg [[place] 1 tab PO Q8H PRN 04/07/19 04/07/19 10-325 mg] Insulin Glargine,Hum.rec.anlog 7 unit SQ HS 04/07/19 04/07/19 [Lantus Solostar] Insulin LISPRO [Humalog Kwikpen 5 unit SQ TIDWM PRN 04/07/19 04/07/19 U-100] Metformin HCl 850 mg PO BID 04/07/19 04/07/19 Allergies Allergy/AdvReac Type Severity Reaction Status Date / Time oxycodone [From Percocet] Allergy Fatigued Verified 04/06/19 19:47 acetaminophen [From Vicodin] AdvReac Abdominal Verified 04/06/19 19:47 Pain Beta-Blockers AdvReac See Verified 04/07/19 14:48 (Beta-Adrenergic Bloc Comments hydrocodone [From Vicodin] AdvReac Abdominal Verified 04/06/19 19:47 Pain Gmgdbtn-Fjw-Qnf Reductase AdvReac Muscle Pain Verified 04/06/19 19:47 Inhibitor [Statins] Constitutional: Reports: weakness. Denies: fever, chills Cardiovascular: Denies: chest pain, palpitations, dyspnea on exertion Respiratory: Denies: cough, dyspnea, wheezes Gastrointestinal: Denies: abdominal pain, nausea, vomiting Genitourinary: Denies: dysuria Musculoskeletal: Denies: back pain Neurological: Denies: headache Endocrine: Reports: fatigue Past Medical History - Past Medical History Medical history: Reports: atrial fibrillation, DVT, diabetes Psychiatric history: Reports: no psych history - Social History Smoking Status: Never smoker Smokeless Tobacco Status: No Alcohol use: Reports: none Drug use: Reports: none Physical Exam - General Limitations: no limitations General appearance: alert, in no apparent distress Course Vital Signs Temperature 102.5 F H 04/06/19 16:31 Pulse Rate 86 04/06/19 16:31 Respiratory Rate 12 04/06/19 16:31 Blood Pressure 168/88 04/06/19 16:31 O2 Sat by Pulse Oximetry 95 04/06/19 16:31 Temperature 97.7 F 04/08/19 07:27 Pulse Rate 92 04/08/19 07:27 Respiratory Rate 16 04/08/19 07:27 Blood Pressure 153/87 04/08/19 07:27 O2 Sat by Pulse Oximetry 94 04/08/19 07:27 Oxygen Delivery Oxygen Delivery Room Air Medical Decision Making - Lab Data Result diagrams: 04/06/19 17:49 04/06/19 17:49 Lab Results 04/06/19 04/06/19 04/06/19 Range/Units 17:49 17:49 17:49 WBC 9.4 (4.3-11.1) K/mcL RBC 4.38 (4.19-5.50) M/mcL Hgb 13.3 (12.9-16.9) g/dL Hct 41.2 (37.5-50.1) % MCV 94.1 (83.0-100.0) fL MCH 30.4 (28.0-33.3) pg MCHC 32.3 (31.6-35.5) g/dL RDW 13.6 (11.5-14.5) % Plt Count 143 (140-400) K/mcL MPV 10.8 (9.4-12.4) fL Immature Gran % 0.4 (0-4) % Seg Neutrophils % 88.2 % Lymphocytes % 4.6 % Monocytes % 6.6 % Eosinophils % 0.0 % Basophils % 0.2 % Neutrophils # 8.3 (1.6-8.9) K/mcL Lymphocytes # 0.4 L (0.6-4.6) K/mcL Monocytes # 0.6 (0.0-1.3) K/mcL Eosinophils # 0.0 (0.0-0.6) K/mcL Basophils # 0.0 (0.0-0.2) K/mcL PT 15.9 H (9.4-12.1) Seconds INR 1.4 APTT 40.3 H (26.0-36.0) Seconds Sodium 137 (136-145) mEq/L Potassium 4.6 (3.5-5.1) mEq/L Chloride 101 (98-107) mEq/L Carbon Dioxide 25 (23-29) mEq/L BUN 22 (8-23) mg/dL Creatinine 1.13 (0.70-1.30) mg/dL Est GFR ( Amer) > 60 (> 60) Est GFR (Non-Af Amer) > 60 (> 60) BUN/Creatinine Ratio 19 (6-26) Glucose 268 H (70-105) mg/dL Calculated Osmolality 297 (280-300) Lactic Acid (0.5-2.2) mmol/L Calcium 9.4 (8.6-10.3) mg/dL Phosphorus 2.1 L (2.7-4.5) mg/dL Magnesium 1.8 (1.6-2.6) mg/dL Total Bilirubin 0.6 (0.3-1.0) mg/dL Direct Bilirubin 0.1 (0.0-0.2) mg/dL Indirect Bilirubin 0.5 (0.0-1.2) mg/dL AST 15 (13-39) Units/L ALT 18 (7-52) Units/L Alkaline Phosphatase 77 (34-104) Units/L Troponin I < 0.03 (< 0.04) ng/mL Serum Total Protein 7.2 (6.4-8.9) g/dL Albumin 4.4 (3.5-5.7) g/dL Globulin 2.8 (2.4-3.5) g/dL Albumin/Globulin Ratio 1.6 (1.1-2.2) Urine Color (Yellow) Urine Clarity (Clear) Urine pH (5.0-8.0) pH Units Ur Specific [place] (1.010-1.025) Urine Protein (Neg-Trace) mg/dL Urine Glucose (UA) (Normal) mg/dL Urine Ketones (Negative) mg/dL Urine Blood (Negative) Urine Nitrite (Negative) Urine Bilirubin (Negative) Urine Urobilinogen (Normal) mg/dL Ur Leukocyte Esterase (Negative) Ur Culture Indicated? (NO) Chlamy pneumoniae PCR (Not Detect) Adenovirus (PCR) (Not Detect) B. pertussis DNA (PCR) (Not Detect) B.parapertussis DNA PCR (Not Detect) Coronavirus OC43 (PCR) (Not Detect) Coronavirus HKU1 (PCR) (Not Detect) Coronavirus 229E (PCR) (Not Detect) Coronavirus NL63 (PCR) (Not Detect) Human Metapneumovir PCR (Not Detect) Influenza A (H1) PCR (Not Detect) Influ A (H1N1/09) PCR (Not Detect) Influenza A (H3) PCR (Not Detect) Influenza A Untype (PCR) (Not Detect) Influenza Type B (PCR) (Not Detect) M.pneumoniae DNA (PCR) (Not Detect) Parainfluenza 1 (PCR) (Not Detect) Parainfluenza 2 (PCR) (Not Detect) Parainfluenza 3 (PCR) (Not Detect) Parainfluenza 4 (PCR) (Not Detect) RSV (PCR) (Not Detect) Entero/Rhino (PCR) (Not Detect) 04/06/19 04/06/19 04/06/19 Range/Units 17:49 19:09 20:49 WBC (4.3-11.1) K/mcL RBC (4.19-5.50) M/mcL Hgb (12.9-16.9) g/dL Hct (37.5-50.1) % MCV (83.0-100.0) fL MCH (28.0-33.3) pg MCHC (31.6-35.5) g/dL RDW (11.5-14.5) % Plt Count (140-400) K/mcL MPV (9.4-12.4) fL Immature Gran % (0-4) % Seg Neutrophils % % Lymphocytes % % Monocytes % % Eosinophils % % Basophils % % Neutrophils # (1.6-8.9) K/mcL Lymphocytes # (0.6-4.6) K/mcL Monocytes # (0.0-1.3) K/mcL Eosinophils # (0.0-0.6) K/mcL Basophils # (0.0-0.2) K/mcL PT (9.4-12.1) Seconds INR APTT (26.0-36.0) Seconds Sodium (136-145) mEq/L Potassium (3.5-5.1) mEq/L Chloride (98-107) mEq/L Carbon Dioxide (23-29) mEq/L BUN (8-23) mg/dL Creatinine (0.70-1.30) mg/dL Est GFR ( Amer) (> 60) Est GFR (Non-Af Amer) (> 60) BUN/Creatinine Ratio (6-26) Glucose (70-105) mg/dL Calculated Osmolality (280-300) Lactic Acid 1.6 (0.5-2.2) mmol/L Calcium (8.6-10.3) mg/dL Phosphorus (2.7-4.5) mg/dL Magnesium (1.6-2.6) mg/dL Total Bilirubin (0.3-1.0) mg/dL Direct Bilirubin (0.0-0.2) mg/dL Indirect Bilirubin (0.0-1.2) mg/dL AST (13-39) Units/L ALT (7-52) Units/L Alkaline Phosphatase (34-104) Units/L Troponin I (< 0.04) ng/mL Serum Total Protein (6.4-8.9) g/dL Albumin (3.5-5.7) g/dL Globulin (2.4-3.5) g/dL Albumin/Globulin Ratio (1.1-2.2) Urine Color Yellow (Yellow) Urine Clarity Clear (Clear) Urine pH 6.0 (5.0-8.0) pH Units Ur Specific [place] 1.025 (1.010-1.025) Urine Protein Trace (Neg-Trace) mg/dL Urine Glucose (UA) 500 H (Normal) mg/dL Urine Ketones Trace H (Negative) mg/dL Urine Blood Negative (Negative) Urine Nitrite Negative (Negative) Urine Bilirubin Negative (Negative) Urine Urobilinogen Normal (Normal) mg/dL Ur Leukocyte Esterase Negative (Negative) Ur Culture Indicated? NO (NO) Chlamy pneumoniae PCR Not Detected (Not Detect) Adenovirus (PCR) Not Detected (Not Detect) B. pertussis DNA (PCR) Not Detected (Not Detect) B.parapertussis DNA PCR Not Detected (Not Detect) Coronavirus OC43 (PCR) Not Detected (Not Detect) Coronavirus HKU1 (PCR) Not Detected (Not Detect) Coronavirus 229E (PCR) Not Detected (Not Detect) Coronavirus NL63 (PCR) Not Detected (Not Detect) Human Metapneumovir PCR Not Detected (Not Detect) Influenza A (H1) PCR Not Detected (Not Detect) Influ A (H1N1/09) PCR Not Detected (Not Detect) Influenza A (H3) PCR Not Detected (Not Detect) Influenza A Untype (PCR) Not Detected (Not Detect) Influenza Type B (PCR) Not Detected (Not Detect) M.pneumoniae DNA (PCR) Not Detected (Not Detect) Parainfluenza 1 (PCR) Not Detected (Not Detect) Parainfluenza 2 (PCR) Not Detected (Not Detect) Parainfluenza 3 (PCR) Not Detected (Not Detect) Parainfluenza 4 (PCR) Not Detected (Not Detect) RSV (PCR) Not Detected (Not Detect) Entero/Rhino (PCR) DETECTED A (Not Detect) Attestation Statement - Attestation Attestation: I examined this patient and my medical decision-making was reviewed with the Resident Physician. I agree with the documented findings, disposition and treatment plan as described.
== END 2019-04-08 11:50 | disposition home or self-care (01) ==
LOC: 3BNU 16:28 → EMEROOARM 16:28 → 3BNU 22:18
PROVIDERS: ADMIT Internal Medicine; ATTEND Internal Medicine

== ENCOUNTER 2020-07-30 16:36 | Inpatient (IN) ==
[2020-07-30] MEDS ORDERED: Ibuprofen 600 MG TABLET PO ONE (16:58)
[2020-07-30 17:26] LABS: Basophils % 0.1 %; Hematocrit 39.8 % (37.5-50.1); Hemoglobin 12.4 g/dL (12.9-16.9); Immature Granulocytes % 0.5 % (0-4); Lymphocytes # 0.4 K/mcL (0.6-4.6); Lymphocytes % 3.5 %; Mean Corpuscular HGB Conc 31.2 g/dL (31.6-35.5); Mean Corpuscular Hemoglobin 28.6 pg (28.0-33.3); Mean Corpuscular Volume 91.9 fL (83.0-100.0); Mean Platelet Volume 10.4 fL (9.4-12.4); Monocytes # 0.9 K/mcL (0.0-1.3); Monocytes % 7.3 %; Neutrophils # 10.8 K/mcL (1.6-8.9); Platelet Count 153 K/mcL (140-400); Red Blood Count 4.33 M/mcL (4.19-5.50); Segmented Neutrophils % 88.6 %
[2020-07-30 17:27] LABS: White Blood Count 12.2 K/mcL (4.3-11.1)
[2020-07-30 17:54] LABS: Alanine Aminotransferase 7 Units/L (7-52); Albumin 4.4 g/dL (3.5-5.7); Albumin/Globulin Ratio 1.5 (1.1-2.2); Alkaline Phosphatase 130 Units/L (34-104); Aspartate Amino Transferase 32 Units/L (13-39); BUN/Creatinine Ratio 26 (6-26); Bilirubin,Total 0.5 mg/dL (0.3-1.0); Blood Urea Nitrogen 27 mg/dL (8-23); Calcium 8.7 mg/dL (8.6-10.3); Carbon Dioxide 23 mEq/L (23-29); Chloride 100 mEq/L (98-107); Glucose 188 mg/dL (70-105); Osmolality,Calculated 292 (280-300); Potassium 3.9 mEq/L (3.5-5.1); Sodium 136 mEq/L (136-145); Total Protein 7.4 g/dL (6.4-8.9); Troponin I 0.04 ng/mL (< 0.04); eGFR For African Americans > 60 (> 60); eGFR For Non-African Americans > 60 (> 60)
[2020-07-30] MEDS ORDERED: 0.9 % Sodium Chloride 1,000 ML IVC ONE ×2 (18:16→18:31)
[2020-07-30] MEDS ORDERED: cefTRIAXone 1,000 MG in 0.9 % Sodium Chloride Mini Bag 100 ML IVPB ONE (18:32)
[2020-07-30 19:44] LABS: Bacteria,Urine Few per hpf (None-Few); Bilirubin,Urine Negative (Negative); Blood,Urine Small (Negative); Clarity,Urine Clear (Clear); Color,Urine Yellow (Yellow); Glucose,Urine (UA) 30 mg/dL (Normal); Ketones,Urine 20 mg/dL (Negative); Leukocyte Esterase,Urine Moderate (Negative); Mucus,Urine Few per lpf (None-Few); Nitrite,Urine Negative (Negative); PH,Urine 5.5 pH Units (5.0-8.0); Protein,Urine 50 mg/dL (Neg-Trace); RBC,Urine 0-3 per hpf (0-3); Specific Gravity,Urine 1.023 (1.010-1.025); Squamous Epithelial Cell,Urine Few per hpf (None-Few); Urobilinogen,Urine Normal (Normal); WBC,Urine 15-30 per hpf (0-3)
[2020-07-30] MEDS ORDERED: Dextrose Gel 15 GM/37.5 ML TUBE PO PRN ×2 (20:46)
[2020-07-30] MEDS ORDERED: *HR* Dextrose 50 % in Water (Vial) 50 ML VIAL IVP PRN (20:46)
[2020-07-30] MEDS ORDERED: D5% in Water 1,000 ML IVC PRN (20:46)
[2020-07-30 21:31] LABS: Estimated Average Glucose 206 mg/dl; Hemoglobin A1C 8.8 %
[2020-07-30] MEDS: 0.9 % Sodium Chloride 1,000 ML IVC SCH (21:35)
[2020-07-31] MEDS: Insulin LISPRO 300 UNITS/3 ML VIAL SUBQ SCH ×5 (00:46→21:07)
[2020-07-31 03:09] LABS: Basophils % 0.1 %; Hematocrit 36.3 % (37.5-50.1); Hemoglobin 11.6 g/dL (12.9-16.9); Immature Granulocytes % 0.6 % (0-4); Lymphocytes # 0.4 K/mcL (0.6-4.6); Lymphocytes % 3.6 %; Mean Corpuscular Hemoglobin 29.1 pg (28.0-33.3); Mean Platelet Volume 10.3 fL (9.4-12.4); Monocytes # 0.8 K/mcL (0.0-1.3); Monocytes % 7.6 %; Neutrophils # 9.5 K/mcL (1.6-8.9); Platelet Count 136 K/mcL (140-400); Red Blood Count 3.99 M/mcL (4.19-5.50); Red Cell Distribution Width 15.1 % (11.5-14.5); Segmented Neutrophils % 88.1 %; White Blood Count 10.8 K/mcL (4.3-11.1)
[2020-07-31 03:11] LABS: INR 1.5; Prothrombin Time 17.2 Seconds (9.4-12.1)
[2020-07-31 03:14] LABS: Activated Partial Thrombo Time 33.1 Seconds (26.0-36.0)
[2020-07-31 03:25] LABS: Alanine Aminotransferase 15 Units/L (7-52); Albumin 3.7 g/dL (3.5-5.7); Albumin/Globulin Ratio 1.5 (1.1-2.2); Alkaline Phosphatase 106 Units/L (34-104); Aspartate Amino Transferase 30 Units/L (13-39); BUN/Creatinine Ratio 30 (6-26); Bilirubin,Direct 0.1 mg/dL (0.0-0.2); Bilirubin,Indirect 0.4 mg/dL (0.0-1.0); Bilirubin,Total 0.5 mg/dL (0.3-1.0); Blood Urea Nitrogen 36 mg/dL (8-23); Calcium 7.7 mg/dL (8.6-10.3); Carbon Dioxide 22 mEq/L (23-29); Chloride 106 mEq/L (98-107); Globulin 2.4 g/dL (2.4-3.5); Glucose 197 mg/dL (70-105); Osmolality,Calculated 298 (280-300); Potassium 3.4 mEq/L (3.5-5.1); Sodium 137 mEq/L (136-145); Total Protein 6.1 g/dL (6.4-8.9); eGFR For African Americans > 60 (> 60); eGFR For Non-African Americans 58 (> 60)
[2020-07-31] MEDS: 0.9 % Sodium Chloride 1,000 ML IVC SCH (12:06)
[2020-07-31] MEDS: Aspirin Enteric Coated 81 MG Tablet PO SCH (12:09)
[2020-07-31] MEDS ORDERED: 0.9 % Sodium Chloride 1,000 ML IVC SCH (13:05)
[2020-07-31] MEDS: Carbidopa/Levodopa 25/100 TABLET PO SCH (21:07)
[2020-07-31] MEDS: cefTRIAXone 2,000 MG in Water for inj. (sterile) 20 ML IVP SCH (21:08)
[2020-07-31] MEDS: Gabapentin 300 MG CAPSULE PO SCH (21:08)
[2020-07-31] MEDS ORDERED: Ondansetron 4 MG/2 ML VIAL IVP ONE (21:12)
[2020-07-31] MEDS ORDERED: *HR* Promethazine 25 MG/ML VIAL IM PRN (23:09)
[2020-08-01] MEDS ORDERED: *HR* HYDROcodone/Acet 10/325 mg TABLET PO PRN (01:43)
[2020-08-01 01:57] LABS: Basophils % 0.2 %; Hematocrit 34.2 % (37.5-50.1); Hemoglobin 10.8 g/dL (12.9-16.9); Immature Granulocytes % 0.4 % (0-4); Lymphocytes # 0.5 K/mcL (0.6-4.6); Lymphocytes % 8.5 %; Mean Corpuscular HGB Conc 31.6 g/dL (31.6-35.5); Mean Corpuscular Hemoglobin 28.7 pg (28.0-33.3); Mean Platelet Volume 10.6 fL (9.4-12.4); Monocytes # 0.4 K/mcL (0.0-1.3); Monocytes % 6.5 %; Neutrophils # 4.7 K/mcL (1.6-8.9); Platelet Count 121 K/mcL (140-400); Red Blood Count 3.76 M/mcL (4.19-5.50); Red Cell Distribution Width 15.2 % (11.5-14.5); Segmented Neutrophils % 84.4 %; White Blood Count 5.6 K/mcL (4.3-11.1)
[2020-08-01 02:17] LABS: Alanine Aminotransferase 8 Units/L (7-52); Albumin 3.4 g/dL (3.5-5.7); Albumin/Globulin Ratio 1.4 (1.1-2.2); Alkaline Phosphatase 91 Units/L (34-104); Aspartate Amino Transferase 35 Units/L (13-39); BUN/Creatinine Ratio 33 (6-26); Bilirubin,Total 0.4 mg/dL (0.3-1.0); Blood Urea Nitrogen 32 mg/dL (8-23); Calcium 7.3 mg/dL (8.6-10.3); Carbon Dioxide 19 mEq/L (23-29); Chloride 109 mEq/L (98-107); Globulin 2.5 g/dL (2.4-3.5); Glucose 159 mg/dL (70-105); Osmolality,Calculated 298 (280-300); Potassium 3.4 mEq/L (3.5-5.1); Sodium 139 mEq/L (136-145); Total Protein 5.9 g/dL (6.4-8.9); eGFR For African Americans > 60 (> 60); eGFR For Non-African Americans > 60 (> 60)
[2020-08-01] MEDS ORDERED: Ondansetron ODT 4 MG TAB.RAPDIS SL PRN (06:46)
[2020-08-01] MEDS: Insulin LISPRO 300 UNITS/3 ML VIAL SUBQ SCH ×4 (07:59→22:44)
[2020-08-01] MEDS: Aspirin Enteric Coated 81 MG Tablet PO SCH (08:01)
[2020-08-01] MEDS: Gabapentin 300 MG CAPSULE PO SCH (08:01)
[2020-08-01] MEDS: Carbidopa/Levodopa 25/100 TABLET PO SCH ×2 (08:01→15:58)
[2020-08-01 08:45] LABS: Adenovirus Not Detected (Not Detect); Bordetella Pertussis Not Detected (Not Detect); Chlamydophila pneumoniae Not Detected (Not Detect); Coronavirus 229E Not Detected (Not Detect); Coronavirus HKU1 Not Detected (Not Detect); Coronavirus NL63 Not Detected (Not Detect); Coronavirus OC43 Not Detected (Not Detect); Human Metapneumovirus Not Detected (Not Detect); Human Rhinovirus/Enterovirus Not Detected (Not Detect); Influenza A Subtype 2009 H1 Not Detected (Not Detect); Influenza B Not Detected (Not Detect); Mycoplasma pneumoniae Not Detected (Not Detect); Parainfluenza Virus 1 Not Detected (Not Detect); Parainfluenza Virus 2 Not Detected (Not Detect); Parainfluenza Virus 3 Not Detected (Not Detect); Parainfluenza Virus 4 Not Detected (Not Detect); Respiratory Syncytial Virus Not Detected (Not Detect); SARS-CoV-2 Not Detected (Not Detect)
[2020-08-01] MEDS ORDERED: LEVODOPA PO SCH (09:00)
[2020-08-01] MEDS ORDERED: lisinopriL 20 MG TABLET PO SCH (09:00)
[2020-08-01] MEDS ORDERED: CARBIDOPA PO SCH (09:00)
[2020-08-01] MEDS ORDERED: Finasteride 5 MG TABLET PO SCH (09:00)
[2020-08-01] MEDS ORDERED: Gabapentin 300 MG CAPSULE PO SCH (15:00)
[2020-08-01] MEDS ORDERED: *HR* Metoprolol 5 MG/5 ML VIAL IVP ONE (15:55)
[2020-08-01] MEDS: cefTRIAXone 2,000 MG in Water for inj. (sterile) 20 ML IVP SCH (22:49)
[2020-08-01] MEDS: *HR* Metoprolol 5 MG/5 ML VIAL IVP PRN (22:50)
[2020-08-02] MEDS ORDERED: *HR* LORazepam 2 MG/ML VIAL IVP ONE ×2 (01:00→10:44)
[2020-08-02 04:53] LABS: Basophils % 0.5 %; Hematocrit 35.9 % (37.5-50.1); Hemoglobin 11.2 g/dL (12.9-16.9); Immature Granulocytes % 0.6 % (0-4); Lymphocytes # 0.9 K/mcL (0.6-4.6); Lymphocytes % 13.1 %; Mean Corpuscular HGB Conc 31.2 g/dL (31.6-35.5); Mean Corpuscular Hemoglobin 28.2 pg (28.0-33.3); Mean Corpuscular Volume 90.4 fL (83.0-100.0); Mean Platelet Volume 10.5 fL (9.4-12.4); Monocytes # 0.7 K/mcL (0.0-1.3); Monocytes % 10.3 %; Platelet Count 135 K/mcL (140-400); Red Blood Count 3.97 M/mcL (4.19-5.50); Red Cell Distribution Width 15.2 % (11.5-14.5); Segmented Neutrophils % 75.5 %; White Blood Count 6.6 K/mcL (4.3-11.1)
[2020-08-02 05:14] LABS: Alanine Aminotransferase 15 Units/L (7-52); Albumin 3.7 g/dL (3.5-5.7); Albumin/Globulin Ratio 1.3 (1.1-2.2); Alkaline Phosphatase 99 Units/L (34-104); Aspartate Amino Transferase 32 Units/L (13-39); BUN/Creatinine Ratio 26 (6-26); Bilirubin,Total 0.5 mg/dL (0.3-1.0); Blood Urea Nitrogen 25 mg/dL (8-23); Calcium 8.1 mg/dL (8.6-10.3); Carbon Dioxide 26 mEq/L (23-29); Chloride 106 mEq/L (98-107); Globulin 2.8 g/dL (2.4-3.5); Glucose 148 mg/dL (70-105); Osmolality,Calculated 303 (280-300); Sodium 143 mEq/L (136-145); Total Protein 6.5 g/dL (6.4-8.9); eGFR For African Americans > 60 (> 60); eGFR For Non-African Americans > 60 (> 60)
[2020-08-02 05:28] LABS: Platelet Estimate Normal (Normal); Reactive Lymphocytes Present (Not Present)
[2020-08-02] MEDS: Insulin LISPRO 300 UNITS/3 ML VIAL SUBQ SCH ×3 (06:09→18:18)
[2020-08-02] MEDS: *HR* Metoprolol 5 MG/5 ML VIAL IVP PRN (06:10)
[2020-08-02] MEDS ORDERED: *HR* Metoprolol 5 MG/5 ML VIAL IVP ONE (08:40)
[2020-08-02] MEDS: Pantoprazole 40 MG VIAL IVP SCH (08:56)
[2020-08-02] MEDS: Metoclopramide 10 MG/2 ML VIAL IVP SCH ×4 (08:56→23:13)
[2020-08-02] MEDS ORDERED: Carbidopa/Levodopa ER 50/200 TABLET PO SCH (09:00)
[2020-08-02] MEDS ORDERED: Acetaminophen IV 1,000 MG/100 ML BAG IVPB ONE (10:38)
[2020-08-02] MEDS ORDERED: niCARdipine 20 MG/200 ML MLS IVC SCH (12:15)
[2020-08-02] MEDS: *HR* Metoprolol 5 MG/5 ML VIAL IVP SCH ×3 (12:28→23:13)
[2020-08-02] MEDS: 0.9 % Sodium Chloride 1,000 ML IVC SCH (15:42)
[2020-08-02] MEDS: cefTRIAXone 2,000 MG in Water for inj. (sterile) 20 ML IVP SCH (20:28)
[2020-08-03] MEDS: Insulin LISPRO 300 UNITS/3 ML VIAL SUBQ SCH ×4 (00:27→17:38)
[2020-08-03] MEDS: *HR* Metoprolol 5 MG/5 ML VIAL IVP SCH ×4 (00:30→17:30)
[2020-08-03 05:21] LABS: Basophils % 0.2 %; Eosinophils % 0.2 %; Hematocrit 35.4 % (37.5-50.1); Hemoglobin 11.3 g/dL (12.9-16.9); Immature Granulocytes % 0.4 % (0-4); Lymphocytes # 0.8 K/mcL (0.6-4.6); Lymphocytes % 14.9 %; Mean Corpuscular HGB Conc 31.9 g/dL (31.6-35.5); Mean Corpuscular Hemoglobin 28.9 pg (28.0-33.3); Mean Corpuscular Volume 90.5 fL (83.0-100.0); Mean Platelet Volume 10.7 fL (9.4-12.4); Monocytes # 0.5 K/mcL (0.0-1.3); Monocytes % 10.1 %; Neutrophils # 3.9 K/mcL (1.6-8.9); Platelet Count 140 K/mcL (140-400); Red Blood Count 3.91 M/mcL (4.19-5.50); Segmented Neutrophils % 74.2 %; White Blood Count 5.3 K/mcL (4.3-11.1)
[2020-08-03] MEDS: Metoclopramide 10 MG/2 ML VIAL IVP SCH ×3 (05:35→17:30)
[2020-08-03 05:43] LABS: Alanine Aminotransferase 15 Units/L (7-52); Albumin 3.3 g/dL (3.5-5.7); Albumin/Globulin Ratio 1.1 (1.1-2.2); Alkaline Phosphatase 86 Units/L (34-104); Aspartate Amino Transferase 25 Units/L (13-39); BUN/Creatinine Ratio 30 (6-26); Bilirubin,Total 0.6 mg/dL (0.3-1.0); Blood Urea Nitrogen 23 mg/dL (8-23); Carbon Dioxide 24 mEq/L (23-29); Chloride 107 mEq/L (98-107); Glucose 123 mg/dL (70-105); Osmolality,Calculated 305 (280-300); Potassium 3.4 mEq/L (3.5-5.1); Sodium 145 mEq/L (136-145); Total Protein 6.3 g/dL (6.4-8.9); eGFR For African Americans > 60 (> 60); eGFR For Non-African Americans > 60 (> 60)
[2020-08-03 05:52] LABS: Platelet Estimate Normal (Normal)
[2020-08-03] MEDS: Pantoprazole 40 MG VIAL IVP SCH (07:55)
[2020-08-03] MEDS: cefTRIAXone 2,000 MG in Water for inj. (sterile) 20 ML IVP SCH (20:54)
[2020-08-04] MEDS: Insulin LISPRO 300 UNITS/3 ML VIAL SUBQ SCH ×3 (00:45→12:58)
[2020-08-04] MEDS: Metoclopramide 10 MG/2 ML VIAL IVP SCH ×5 (00:49→23:34)
[2020-08-04] MEDS: *HR* Metoprolol 5 MG/5 ML VIAL IVP SCH ×5 (00:49→23:35)
[2020-08-04] MEDS: Pantoprazole 40 MG VIAL IVP SCH (07:50)
[2020-08-04 08:21] LABS: Basophils % 0.4 %; Eosinophils % 0.2 %; Hematocrit 38.6 % (37.5-50.1); Hemoglobin 12.1 g/dL (12.9-16.9); Immature Granulocytes % 0.4 % (0-4); Lymphocytes # 0.9 K/mcL (0.6-4.6); Lymphocytes % 15.9 %; Mean Corpuscular HGB Conc 31.3 g/dL (31.6-35.5); Mean Corpuscular Volume 89.4 fL (83.0-100.0); Mean Platelet Volume 10.2 fL (9.4-12.4); Monocytes # 0.7 K/mcL (0.0-1.3); Monocytes % 11.6 %; Platelet Count 165 K/mcL (140-400); Red Blood Count 4.32 M/mcL (4.19-5.50); Red Cell Distribution Width 14.7 % (11.5-14.5); Segmented Neutrophils % 71.5 %; White Blood Count 5.6 K/mcL (4.3-11.1)
[2020-08-04 08:39] LABS: BUN/Creatinine Ratio 29 (6-26); Blood Urea Nitrogen 23 mg/dL (8-23); Calcium 8.5 mg/dL (8.6-10.3); Carbon Dioxide 25 mEq/L (23-29); Chloride 105 mEq/L (98-107); Glucose 172 mg/dL (70-105); Osmolality,Calculated 308 (280-300); Sodium 145 mEq/L (136-145); eGFR For African Americans > 60 (> 60); eGFR For Non-African Americans > 60 (> 60)
[2020-08-04 09:10] LABS: Large Platelets Present (Not Present); Platelet Estimate Normal (Normal)
[2020-08-04] MEDS ORDERED: Insulin LISPRO 300 UNITS/3 ML VIAL SUBQ SCH ×3 (13:15→21:00)
[2020-08-04] MEDS ORDERED: amLODIPine 5 MG TABLET PO SCH (15:15)
[2020-08-04 19:05] LABS: Adenovirus Not Detected (Not Detect); Coronavirus 229E Not Detected (Not Detect); Coronavirus HKU1 Not Detected (Not Detect); Coronavirus NL63 Not Detected (Not Detect); Coronavirus OC43 Not Detected (Not Detect)
[2020-08-04 19:06] LABS: Bordetella Pertussis Not Detected (Not Detect); Chlamydophila pneumoniae Not Detected (Not Detect); Human Metapneumovirus Not Detected (Not Detect); Human Rhinovirus/Enterovirus Not Detected (Not Detect); Influenza A Subtype 2009 H1 Not Detected (Not Detect); Influenza B Not Detected (Not Detect); Mycoplasma pneumoniae Not Detected (Not Detect); Parainfluenza Virus 1 Not Detected (Not Detect); Parainfluenza Virus 2 Not Detected (Not Detect); Parainfluenza Virus 3 Not Detected (Not Detect); Parainfluenza Virus 4 Not Detected (Not Detect); Respiratory Syncytial Virus Not Detected (Not Detect); SARS-CoV-2 Not Detected (Not Detect)
[2020-08-04] MEDS: cefTRIAXone 2,000 MG in Water for inj. (sterile) 20 ML IVP SCH (23:35)
[2020-08-04 23:58] VITALS: BP 160/72
[2020-08-05 02:09] LABS: Basophils % 0.4 %; Eosinophils % 0.5 %; Hematocrit 37.7 % (37.5-50.1); Hemoglobin 12.2 g/dL (12.9-16.9); Immature Granulocytes % 0.5 % (0-4); Lymphocytes # 1.2 K/mcL (0.6-4.6); Lymphocytes % 20.6 %; Mean Corpuscular HGB Conc 32.4 g/dL (31.6-35.5); Mean Corpuscular Hemoglobin 28.8 pg (28.0-33.3); Mean Corpuscular Volume 88.9 fL (83.0-100.0); Mean Platelet Volume 10.5 fL (9.4-12.4); Monocytes # 0.6 K/mcL (0.0-1.3); Monocytes % 10.4 %; Neutrophils # 3.8 K/mcL (1.6-8.9); Platelet Count 184 K/mcL (140-400); Red Blood Count 4.24 M/mcL (4.19-5.50); Red Cell Distribution Width 14.4 % (11.5-14.5); Segmented Neutrophils % 67.6 %; White Blood Count 5.6 K/mcL (4.3-11.1)
[2020-08-05 02:30] LABS: BUN/Creatinine Ratio 27 (6-26); Blood Urea Nitrogen 20 mg/dL (8-23); Calcium 8.8 mg/dL (8.6-10.3); Carbon Dioxide 26 mEq/L (23-29); Chloride 104 mEq/L (98-107); Glucose 176 mg/dL (70-105); Magnesium 1.8 mg/dL (1.6-2.6); Osmolality,Calculated 299 (280-300); Phosphorous 2.1 mg/dL (2.7-4.5); Potassium 2.6 mEq/L (3.5-5.1); Sodium 141 mEq/L (136-145); eGFR For African Americans > 60 (> 60); eGFR For Non-African Americans > 60 (> 60)
[2020-08-05 03:11] LABS: Platelet Estimate Normal (Normal); Reactive Lymphocytes Present (Not Present)
== END 2020-08-05 02:50 ==
LOC: 3ANU 16:36 → EMEROOARM 16:36 → SUATTDRO 20:12 → 3ANU 21:39 → 2NNU 08-02 15:01 → 3ANU 08-04 12:22
PROVIDERS: ADMIT Internal Medicine; ATTEND Internal Medicine

== ENCOUNTER 2020-11-17 15:23 | Inpatient (IN) ==
[2020-11-17 16:15] LABS: Basophils % 0.2 %; Eosinophils # 0.1 K/mcL (0.0-0.6); Eosinophils % 0.7 %; Hematocrit 31.4 % (37.5-50.1); Hemoglobin 9.8 g/dL (12.9-16.9); Immature Granulocytes % 0.8 % (0-4); Lymphocytes # 0.8 K/mcL (0.6-4.6); Lymphocytes % 8.4 %; Mean Corpuscular HGB Conc 31.2 g/dL (31.6-35.5); Mean Corpuscular Hemoglobin 29.4 pg (28.0-33.3); Mean Corpuscular Volume 94.3 fL (83.0-100.0); Mean Platelet Volume 11.1 fL (9.4-12.4); Monocytes # 0.7 K/mcL (0.0-1.3); Monocytes % 7.8 %; Neutrophils # 7.5 K/mcL (1.6-8.9); Platelet Count 140 K/mcL (140-400); Red Blood Count 3.33 M/mcL (4.19-5.50); Red Cell Distribution Width 15.3 % (11.5-14.5); Segmented Neutrophils % 82.1 %; White Blood Count 9.1 K/mcL (4.3-11.1)
[2020-11-17 16:28] LABS: BUN/Creatinine Ratio 33 (6-26); Blood Urea Nitrogen 44 mg/dL (8-23); Calcium 8.8 mg/dL (8.6-10.3); Carbon Dioxide 24 mEq/L (23-29); Chloride 105 mEq/L (98-107); Glucose 218 mg/dL (70-105); Osmolality,Calculated 298 (280-300); Sodium 135 mEq/L (136-145); Troponin I 0.03 ng/mL (< 0.04); eGFR For African Americans > 60 (> 60); eGFR For Non-African Americans 51 (> 60)
[2020-11-17 17:49] LABS: Bilirubin,Urine Negative (Negative); Blood,Urine Negative (Negative); Clarity,Urine Clear (Clear); Color,Urine Light-Yellow (Yellow); Glucose,Urine (UA) 200 mg/dL (Normal); Ketones,Urine Negative (Negative); Leukocyte Esterase,Urine Negative (Negative); Mucus,Urine Few per lpf (None-Few); Nitrite,Urine Negative (Negative); Protein,Urine Trace mg/dL (Neg-Trace); RBC,Urine 0-3 per hpf (0-3); Specific Gravity,Urine 1.021 (1.010-1.025); Squamous Epithelial Cell,Urine Few per hpf (None-Few); Urobilinogen,Urine Normal (Normal); WBC,Urine 0-3 per hpf (0-3)
[2020-11-17] MEDS ORDERED: Naloxone 0.4 MG/ML INJ IVP PRN (21:38)
[2020-11-17] MEDS ORDERED: Acetaminophen 325 MG TABLET PO PRN (21:38)
[2020-11-17] MEDS ORDERED: Ondansetron 4 MG/2 ML VIAL IVP PRN (21:38)
[2020-11-17] MEDS ORDERED: Melatonin 3 MG TABLET PO PRN (21:38)
[2020-11-17] MEDS ORDERED: *HR* Dextrose 50 % in Water (Vial) 50 ML VIAL IVP PRN (23:53)
[2020-11-17] MEDS ORDERED: D5% in Water 1,000 ML IVC PRN (23:53)
[2020-11-17] MEDS ORDERED: Dextrose Gel 15 GM/37.5 ML TUBE PO PRN ×2 (23:53)
[2020-11-18 06:32] LABS: Basophils % 0.2 %; Eosinophils % 0.2 %; Hemoglobin 9.8 g/dL (12.9-16.9); Immature Granulocytes % 0.7 % (0-4); Lymphocytes % 10.3 %; Mean Corpuscular HGB Conc 31.6 g/dL (31.6-35.5); Mean Corpuscular Hemoglobin 29.5 pg (28.0-33.3); Mean Corpuscular Volume 93.4 fL (83.0-100.0); Mean Platelet Volume 11.3 fL (9.4-12.4); Monocytes # 0.9 K/mcL (0.0-1.3); Neutrophils # 7.6 K/mcL (1.6-8.9); Platelet Count 134 K/mcL (140-400); Red Blood Count 3.32 M/mcL (4.19-5.50); Red Cell Distribution Width 15.2 % (11.5-14.5); Segmented Neutrophils % 79.6 %; White Blood Count 9.6 K/mcL (4.3-11.1)
[2020-11-18 07:15] LABS: Folate 11.1 ng/mL (3.0-16.0)
[2020-11-18 07:20] LABS: Ferritin 34 ng/mL (20-250)
[2020-11-18 07:35] LABS: % Iron Saturation 5 % (20-55); Iron 15 mcg/dL (65-175); Transferrin 218 mg/dL (203-362)
[2020-11-18] MEDS: Insulin LISPRO 300 UNITS/3 ML VIAL SUBQ SCH ×3 (08:34→16:38)
[2020-11-18 08:52] LABS: Alanine Aminotransferase 15 Units/L (7-52); Albumin 3.7 g/dL (3.5-5.7); Albumin/Globulin Ratio 1.5 (1.1-2.2); Alkaline Phosphatase 69 Units/L (34-104); Aspartate Amino Transferase 10 Units/L (13-39); BUN/Creatinine Ratio 31 (6-26); Bilirubin,Total 0.7 mg/dL (0.3-1.0); Blood Urea Nitrogen 39 mg/dL (8-23); Calcium 8.8 mg/dL (8.6-10.3); Carbon Dioxide 22 mEq/L (23-29); Chloride 107 mEq/L (98-107); Globulin 2.4 g/dL (2.4-3.5); Glucose 174 mg/dL (70-105); Magnesium 1.7 mg/dL (1.6-2.6); Osmolality,Calculated 298 (280-300); Phosphorous 2.2 mg/dL (2.7-4.5); Potassium 4.5 mEq/L (3.5-5.1); Sodium 137 mEq/L (136-145); Total Protein 6.1 g/dL (6.4-8.9); eGFR For African Americans > 60 (> 60); eGFR For Non-African Americans 55 (> 60)
[2020-11-18] MEDS ORDERED: Furosemide 40 MG/4 ML VIAL IVP ONE (16:18)
[2020-11-18] MEDS: Carbidopa/Levodopa 25/100 TABLET PO SCH ×2 (16:37→20:19)
[2020-11-18] MEDS ORDERED: *HR* Rivaroxaban 15 MG TABLET PO SCH (18:00)
[2020-11-18] MEDS: lisinopriL 20 MG TABLET PO SCH (20:20)
[2020-11-18] MEDS ORDERED: Insulin LISPRO 300 UNITS/3 ML VIAL SUBQ SCH (21:00)
[2020-11-19 02:37] LABS: Hemoglobin 10.3 g/dL (12.9-16.9); Mean Corpuscular HGB Conc 32.2 g/dL (31.6-35.5); Mean Corpuscular Hemoglobin 29.5 pg (28.0-33.3); Mean Corpuscular Volume 91.7 fL (83.0-100.0); Mean Platelet Volume 10.7 fL (9.4-12.4); Platelet Count 138 K/mcL (140-400); Red Blood Count 3.49 M/mcL (4.19-5.50); Red Cell Distribution Width 14.8 % (11.5-14.5); White Blood Count 6.2 K/mcL (4.3-11.1)
[2020-11-19 03:15] LABS: Alanine Aminotransferase < 3 Units/L (7-52); Albumin 3.6 g/dL (3.5-5.7); Albumin/Globulin Ratio 1.3 (1.1-2.2); Alkaline Phosphatase 70 Units/L (34-104); Aspartate Amino Transferase 10 Units/L (13-39); BUN/Creatinine Ratio 25 (6-26); Bilirubin,Total 0.9 mg/dL (0.3-1.0); Blood Urea Nitrogen 31 mg/dL (8-23); Calcium 8.9 mg/dL (8.6-10.3); Carbon Dioxide 23 mEq/L (23-29); Chloride 105 mEq/L (98-107); Globulin 2.7 g/dL (2.4-3.5); Glucose 205 mg/dL (70-105); Osmolality,Calculated 296 (280-300); Sodium 137 mEq/L (136-145); Total Protein 6.3 g/dL (6.4-8.9); eGFR For African Americans > 60 (> 60); eGFR For Non-African Americans 57 (> 60)
[2020-11-19] MEDS: Insulin LISPRO 300 UNITS/3 ML VIAL SUBQ SCH ×2 (07:44→12:13)
[2020-11-19] MEDS: Carbidopa/Levodopa 25/100 TABLET PO SCH ×2 (07:45→14:25)
[2020-11-19] MEDS: lisinopriL 20 MG TABLET PO SCH (07:45)
[2020-11-19] MEDS ORDERED: Finasteride 5 MG TABLET PO SCH (09:00)
[2020-11-19] MEDS ORDERED: amLODIPine 5 MG TABLET PO SCH (09:00)
[2020-11-19 15:29] VITALS: BP 168/90
[2020-11-19] MEDS ORDERED: NON-FORMULARY MEDICATION 1 EACH EACH (Atorvastatin Calcium [Lipitor] 20 MG Tablet) PO SCH (21:00)
[2020-11-19] MEDS ORDERED: lisinopriL 10 MG TABLET PO SCH (21:00)
== END 2020-11-19 16:50 | disposition home or self-care (01) | DRG 812 ==
LOC: 3BNU 15:23 → EMEROOARM 15:23 → SUATTDRO 20:06 → 3BNU 20:52 → 2ANU 21:25 → 3BNU 21:42
PROVIDERS: ADMIT Internal Medicine; ATTEND Registered Nurse

== ENCOUNTER 2021-01-28 13:54 | Inpatient (IN) ==
[2021-01-28 14:40] LABS: Basophils % 0.5 %; Eosinophils % 0.2 %; Hemoglobin 9.7 g/dL (12.9-16.9); Immature Granulocytes % 0.5 % (0-4); Lymphocytes # 0.9 K/mcL (0.6-4.6); Lymphocytes % 12.8 %; Mean Corpuscular HGB Conc 30.3 g/dL (31.6-35.5); Mean Corpuscular Volume 92.5 fL (83.0-100.0); Mean Platelet Volume 10.8 fL (9.4-12.4); Monocytes # 0.5 K/mcL (0.0-1.3); Monocytes % 7.1 %; Neutrophils # 5.3 K/mcL (1.6-8.9); Platelet Count 175 K/mcL (140-400); Red Blood Count 3.46 M/mcL (4.19-5.50); Red Cell Distribution Width 15.2 % (11.5-14.5); Segmented Neutrophils % 78.9 %; White Blood Count 6.7 K/mcL (4.3-11.1)
[2021-01-28] MEDS ORDERED: Furosemide 40 MG/4 ML VIAL IVP ONE (14:49)
[2021-01-28 15:01] LABS: Alanine Aminotransferase 7 Units/L (7-52); Albumin 3.8 g/dL (3.5-5.7); Albumin/Globulin Ratio 1.4 (1.1-2.2); Alkaline Phosphatase 71 Units/L (34-104); Aspartate Amino Transferase 13 Units/L (13-39); BUN/Creatinine Ratio 25 (6-26); Bilirubin,Direct 0.2 mg/dL (0.0-0.2); Bilirubin,Indirect 0.4 mg/dL (0.0-1.0); Bilirubin,Total 0.6 mg/dL (0.3-1.0); Blood Urea Nitrogen 27 mg/dL (8-23); Calcium 8.6 mg/dL (8.6-10.3); Carbon Dioxide 18 mEq/L (23-29); Chloride 104 mEq/L (98-107); Globulin 2.7 g/dL (2.4-3.5); Glucose 307 mg/dL (70-105); Osmolality,Calculated 299 (280-300); Potassium 5.1 mEq/L (3.5-5.1); Sodium 136 mEq/L (136-145); Total Protein 6.5 g/dL (6.4-8.9); Troponin I 0.03 ng/mL (< 0.04); eGFR For African Americans > 60 (> 60); eGFR For Non-African Americans > 60 (> 60)
[2021-01-28 15:20] LABS: INR 1.4; Prothrombin Time 16.2 Seconds (9.4-12.1)
[2021-01-28 15:23] LABS: Activated Partial Thrombo Time 36.6 Seconds (26.0-36.0)
[2021-01-28] MEDS ORDERED: cefTRIAXone 1,000 MG in Water for inj. (sterile) 10 ML IVP ONE (15:30)
[2021-01-28] MEDS ORDERED: Azithromycin 500 MG in 0.9 % Sodium Chloride 250 ML IVPB ONE (15:30)
[2021-01-28] MEDS ORDERED: Naloxone 0.4 MG/ML INJ IVP PRN (17:12)
[2021-01-28] MEDS ORDERED: Perflutren Lipid Microsphere 1.3 ML in 0.9 % Sodium Chloride 8.7 ML IVP PRN (17:17)
[2021-01-28] MEDS ORDERED: D5% in Water 1,000 ML IVC PRN (17:18)
[2021-01-28] MEDS ORDERED: *HR* Dextrose 50 % in Water (Vial) 50 ML VIAL IVP PRN (17:18)
[2021-01-28] MEDS ORDERED: Dextrose Gel 15 GM/37.5 ML TUBE PO PRN ×2 (17:18)
[2021-01-28] MEDS: *HR* Rivaroxaban 15 MG TABLET PO SCH (18:30)
[2021-01-28] MEDS: Azithromycin 500 MG in 0.9 % Sodium Chloride 250 ML IVPB SCH (18:31)
[2021-01-28] MEDS: *HR* HYDROcodone/Acet 10/325 mg TABLET PO PRN (18:51)
[2021-01-28] MEDS: Gabapentin 300 MG CAPSULE PO SCH (20:35)
[2021-01-28] MEDS: Carbidopa/Levodopa ER 50/200 TABLET PO SCH (20:35)
[2021-01-28] MEDS: Insulin DETEMIR 100 UNIT/ML X5UNITS SUBQ SCH (20:36)
[2021-01-29] MEDS: *HR* HYDROcodone/Acet 10/325 mg TABLET PO PRN ×2 (02:51→16:44)
[2021-01-29 07:22] LABS: Basophils % 0.3 %; Eosinophils # 0.1 K/mcL (0.0-0.6); Eosinophils % 1.7 %; Hematocrit 33.2 % (37.5-50.1); Hemoglobin 10.1 g/dL (12.9-16.9); Immature Granulocytes % 0.3 % (0-4); Lymphocytes # 1.1 K/mcL (0.6-4.6); Lymphocytes % 16.8 %; Mean Corpuscular HGB Conc 30.4 g/dL (31.6-35.5); Mean Corpuscular Hemoglobin 27.6 pg (28.0-33.3); Mean Corpuscular Volume 90.7 fL (83.0-100.0); Mean Platelet Volume 10.8 fL (9.4-12.4); Monocytes # 0.5 K/mcL (0.0-1.3); Monocytes % 7.9 %; Neutrophils # 4.7 K/mcL (1.6-8.9); Platelet Count 219 K/mcL (140-400); Red Blood Count 3.66 M/mcL (4.19-5.50); White Blood Count 6.4 K/mcL (4.3-11.1)
[2021-01-29 07:34] LABS: BUN/Creatinine Ratio 22 (6-26); Blood Urea Nitrogen 23 mg/dL (8-23); Calcium 9.5 mg/dL (8.6-10.3); Carbon Dioxide 26 mEq/L (23-29); Chloride 104 mEq/L (98-107); Glucose 184 mg/dL (70-105); Magnesium 1.8 mg/dL (1.6-2.6); Osmolality,Calculated 292 (280-300); Potassium 4.2 mEq/L (3.5-5.1); Sodium 137 mEq/L (136-145); eGFR For African Americans > 60 (> 60); eGFR For Non-African Americans > 60 (> 60)
[2021-01-29] MEDS: Insulin LISPRO 300 UNITS/3 ML VIAL SUBQ SCH ×3 (08:17→16:40)
[2021-01-29] MEDS: amLODIPine 5 MG TABLET PO SCH (08:33)
[2021-01-29] MEDS: Finasteride 5 MG TABLET PO SCH (08:33)
[2021-01-29] MEDS: Furosemide 40 MG/4 ML VIAL IVP SCH (08:34)
[2021-01-29] MEDS: cefTRIAXone 1,000 MG in Water for inj. (sterile) 10 ML IVP SCH (08:34)
[2021-01-29] MEDS: lisinopriL 20 MG TABLET PO SCH (08:47)
[2021-01-29] MEDS: Carbidopa/Levodopa ER 50/200 TABLET PO SCH ×4 (08:47→20:16)
[2021-01-29] MEDS: Insulin DETEMIR 100 UNIT/ML X5UNITS SUBQ SCH ×2 (08:47→20:14)
[2021-01-29] MEDS: Ondansetron 4 MG/2 ML VIAL IVP PRN ×2 (10:27→20:16)
[2021-01-29] MEDS ORDERED: Methylnaltrexone 12 MG/0.6 ML SYRINGE SQ ONE (12:30)
[2021-01-29] MEDS: Azithromycin 500 MG in 0.9 % Sodium Chloride 250 ML IVPB SCH (12:47)
[2021-01-29] MEDS: *HR* Rivaroxaban 15 MG TABLET PO SCH (16:44)
[2021-01-29] MEDS: hydrALAZINE 25 MG TABLET PO SCH ×2 (16:45→23:01)
[2021-01-29] MEDS: Gabapentin 300 MG CAPSULE PO SCH (20:16)
[2021-01-29] MEDS ORDERED: *HR* Promethazine 25 MG/ML VIAL IM ONE (22:49)
[2021-01-30] MEDS ORDERED: Acetaminophen 325 MG TABLET PO PRN (00:44)
[2021-01-30 02:15] LABS: Hematocrit 31.9 % (37.5-50.1); Hemoglobin 9.9 g/dL (12.9-16.9); Mean Corpuscular Hemoglobin 27.4 pg (28.0-33.3); Mean Corpuscular Volume 88.4 fL (83.0-100.0); Mean Platelet Volume 10.9 fL (9.4-12.4); Platelet Count 201 K/mcL (140-400); Red Blood Count 3.61 M/mcL (4.19-5.50); Red Cell Distribution Width 14.6 % (11.5-14.5); White Blood Count 7.2 K/mcL (4.3-11.1)
[2021-01-30 02:37] LABS: BUN/Creatinine Ratio 18 (6-26); Blood Urea Nitrogen 18 mg/dL (8-23); Calcium 8.9 mg/dL (8.6-10.3); Carbon Dioxide 25 mEq/L (23-29); Chloride 100 mEq/L (98-107); Glucose 183 mg/dL (70-105); Osmolality,Calculated 289 (280-300); Potassium 3.9 mEq/L (3.5-5.1); Sodium 136 mEq/L (136-145); eGFR For African Americans > 60 (> 60); eGFR For Non-African Americans > 60 (> 60)
[2021-01-30] MEDS ORDERED: *HR* Dextrose 50 % in Water (Vial) 50 ML VIAL IVP PRN (09:05)
[2021-01-30] MEDS ORDERED: D5% in Water 1,000 ML IVC PRN (09:05)
[2021-01-30] MEDS ORDERED: Dextrose Gel 15 GM/37.5 ML TUBE PO PRN ×2 (09:05)
[2021-01-30] MEDS: hydrALAZINE 25 MG TABLET PO SCH ×3 (09:05→23:07)
[2021-01-30] MEDS: Finasteride 5 MG TABLET PO SCH (09:06)
[2021-01-30] MEDS: amLODIPine 5 MG TABLET PO SCH (09:06)
[2021-01-30] MEDS: Carbidopa/Levodopa ER 50/200 TABLET PO SCH ×4 (09:06→20:20)
[2021-01-30] MEDS: lisinopriL 20 MG TABLET PO SCH (09:06)
[2021-01-30] MEDS: Insulin LISPRO 300 UNITS/3 ML VIAL SUBQ SCH ×6 (09:06→16:48)
[2021-01-30] MEDS: Furosemide 40 MG/4 ML VIAL IVP SCH ×2 (09:07→16:44)
[2021-01-30] MEDS: cefTRIAXone 1,000 MG in Water for inj. (sterile) 10 ML IVP SCH (09:07)
[2021-01-30] MEDS: Insulin DETEMIR 100 UNIT/ML X5UNITS SUBQ SCH ×2 (09:07→20:21)
[2021-01-30] MEDS: *HR* HYDROcodone/Acet 10/325 mg TABLET PO PRN ×2 (13:38→21:39)
[2021-01-30] MEDS: Azithromycin 500 MG in 0.9 % Sodium Chloride 250 ML IVPB SCH (13:39)
[2021-01-30] MEDS: *HR* Rivaroxaban 15 MG TABLET PO SCH (16:45)
[2021-01-30] MEDS: Gabapentin 300 MG CAPSULE PO SCH (20:20)
[2021-01-31 05:38] LABS: Calcium 8.9 mg/dL (8.6-10.3); Magnesium 1.8 mg/dL (1.6-2.6); Phosphorous 4.4 mg/dL (2.7-4.5); Potassium 3.7 mEq/L (3.5-5.1)
[2021-01-31] MEDS: Insulin LISPRO 300 UNITS/3 ML VIAL SUBQ SCH ×6 (08:39→16:24)
[2021-01-31] MEDS: Carbidopa/Levodopa ER 50/200 TABLET PO SCH ×4 (08:40→20:21)
[2021-01-31] MEDS: cefTRIAXone 1,000 MG in Water for inj. (sterile) 10 ML IVP SCH (08:40)
[2021-01-31] MEDS: Finasteride 5 MG TABLET PO SCH (08:40)
[2021-01-31] MEDS: amLODIPine 5 MG TABLET PO SCH (08:40)
[2021-01-31] MEDS: lisinopriL 20 MG TABLET PO SCH (08:41)
[2021-01-31] MEDS: hydrALAZINE 25 MG TABLET PO SCH ×3 (08:41→23:10)
[2021-01-31] MEDS: Furosemide 40 MG/4 ML VIAL IVP SCH (08:41)
[2021-01-31] MEDS: Insulin DETEMIR 100 UNIT/ML X5UNITS SUBQ SCH ×2 (08:50→20:21)
[2021-01-31] MEDS ORDERED: Furosemide 40 MG TABLET PO SCH (09:00)
[2021-01-31] MEDS ORDERED: 0.9 % Sodium Chloride 1,000 ML IVC SCH (09:00)
[2021-01-31] MEDS ORDERED: Albumin 25% 25gram/100mL 25 GM/100 ML IV.SOLN IVPB ONE (09:53)
[2021-01-31] MEDS: *HR* HYDROcodone/Acet 10/325 mg TABLET PO PRN ×2 (10:26→23:10)
[2021-01-31] MEDS: Azithromycin 500 MG in 0.9 % Sodium Chloride 250 ML IVPB SCH (14:32)
[2021-01-31] MEDS: *HR* Rivaroxaban 15 MG TABLET PO SCH (16:24)
[2021-01-31 17:42] LABS: Calcium 8.8 mg/dL (8.6-10.3); Potassium 3.9 mEq/L (3.5-5.1)
[2021-01-31] MEDS: Gabapentin 300 MG CAPSULE PO SCH (20:21)
[2021-02-01 06:18] LABS: Calcium 8.7 mg/dL (8.6-10.3); Phosphorous 3.6 mg/dL (2.7-4.5); Potassium 3.8 mEq/L (3.5-5.1)
[2021-02-01] MEDS: Insulin LISPRO 300 UNITS/3 ML VIAL SUBQ SCH ×2 (08:23→08:24)
[2021-02-01] MEDS: cefTRIAXone 1,000 MG in Water for inj. (sterile) 10 ML IVP SCH (08:23)
[2021-02-01] MEDS: Insulin DETEMIR 100 UNIT/ML X5UNITS SUBQ SCH (08:24)
[2021-02-01] MEDS: Carbidopa/Levodopa ER 50/200 TABLET PO SCH (08:24)
[2021-02-01] MEDS: amLODIPine 5 MG TABLET PO SCH (08:24)
[2021-02-01] MEDS: Finasteride 5 MG TABLET PO SCH (08:24)
[2021-02-01] MEDS: hydrALAZINE 25 MG TABLET PO SCH (08:24)
[2021-02-01] MEDS: *HR* HYDROcodone/Acet 10/325 mg TABLET PO PRN (08:34)
[2021-02-01 10:01] VITALS: BP 106/55
== END 2021-02-01 12:05 | disposition home or self-care (01) | DRG 291 ==
LOC: EMEROOARM 13:54 → 2ANU 13:54 → SUATTDRO 16:54 → 2ANU 16:58 → 3BNU 17:27
PROVIDERS: ADMIT Internal Medicine; ATTEND Internal Medicine